=== PATIENT | female | born 1980 | race American Indian/Alaskan Native ===

== ENCOUNTER 2016-12-28 10:52 | Inpatient (IN) | payer OTHER ==
[2016-12-28 14:07] LABS: Mean Corpuscular HGB Conc 30 % (30-34); Mean Corpuscular Volume 79 fl (79-97); Platelet Count 167 K/mm3 (140-440); Red Blood Count 4.47 M/mm3 (3.65-5.03); Red Cell Distribution Width 16.7 % (13.2-15.2); White Blood Count 13.4 K/mm3 (4.5-11.0)
[2016-12-28 14:10] LABS: Hematocrit 35.3 % (30.3-42.9); Hemoglobin 10.7 gm/dl (10.1-14.3); Mean Corpuscular Hemoglobin 24 pg (28-32)
[2016-12-28 14:20] LABS: Anion Gap 14 mmol/L; BUN/Creatinine Ratio 18; Blood Urea Nitrogen 7 mg/dL (7-17); Calcium 8.4 mg/dL (8.4-10.2); Carbon Dioxide 29 mmol/L (22-30); Glucose 96 mg/dL (65-100); Potassium 3.5 mmol/L (3.6-5.0); Sodium 143 mmol/L (137-145)
--- NOTE | 2016-12-28 14:23 | Emergency Department Report ---
ED Neuro Deficit HPI - General Chief Complaint: Neuro Symptoms/Deficit Stated Complaint: RIGHT SIDED WEAKNESS/NUMBNESS Time Seen by Provider: 12/28/16 13:33 Source: EMS Mode of arrival: Stretcher Limitations: Physical Limitation - History of Present Illness Initial Comments: 36-year-old female with a past medical history of asthma, diabetes, a mild stroke at age of 22 presents to the hospital with complaints of right sided numbness and weakness since yesterday afternoon. Weakness and numbness includes right face, right arm, and right leg. Weakness has been constant and progressively worsened and now patient is unable to lift her right arm without using her left hand to do so. Patient denies headache, blurred vision, or slurred speech. She is allergic to aspirin and does not take any other anticoagulants. Patient presents here with elevated blood pressure and denies previous known history of hypertension. - Related Data Allergies/Adverse Reactions: Allergies Allergy/AdvReac Type Severity Reaction Status Date / Time aspirin Allergy Unknown Unknown Verified 12/28/16 11:41 ED Review of Systems ROS: Stated complaint: RIGHT SIDED WEAKNESS/NUMBNESS Other details as noted in HPI Comment: All other systems reviewed and negative Other: Constitutional: No fevers chills Eyes: No eye pain visual changes ENT: No ear pain or throat pain Neck: Denies pain Respiratory: Denies cough wheezing shortness of breath Cardiovascular: Denies chest pain, palpitations, syncope GI: Denies abdominal pain, nausea, vomiting, diarrhea : Denies dysuria Musculoskeletal: Denies back pain, joint swelling Skin: Denies rash, lesions, erythema Neurologic: As per HPI Psychiatric: Denies suicidal ideation, hallucinations ED Past Medical Hx - Past Medical History Hx Diabetes: Yes Hx Asthma: Yes - Surgical History Past Surgical History?: No - Social History Smoking Status: Current Every Day Smoker Substance Use Type: Alcohol ED Neuro Physical Exam - General Limitations: Physical Limitation Suspected Stroke: Yes - NIHSS Assessment Interval: Baseline 1a. Level of Consciousness: alert 1b. LOC Questions: answers correctly 1c. LOC Commands: performs tasks correctly 2. Best Gaze: normal 3. Visual: no visual loss 4. Facial Palsy: normal symmetrical movement 5b. Motor Arm Right: no movement 5a. Motor Arm Left: no drift 6a. Motor Leg Left: no drift 6b. Motor Leg Right: drift 7. Limb Ataxia: absent 8. Sensory: mild/moderate sensory loss (right face, right arm, right leg) 9. Best Language: no aphasia 10. Dysarthria: normal 11. Extinction/Inattention: no abnormality Total Score: 6 Stroke Severity: Moderate Stroke - Other Other exam information: General: No limitations, patient is alert in no acute distress Head exam: Atraumatic, normocephalic Eyes exam: Normal appearance, pupils equal reactive to light, extraocular movements intact ENT: Moist mucous membrane, normal oropharynx Neck exam: Normal inspection, full range of motion, no meningismus nontender Respiratory exam: Clear to auscultation bilateral, no wheezes, rales, crackles Cardiovascular: Normal rate and rhythm, normal heart sounds Abdomen: Soft, nondistended, and nontender, with normal bowel sounds, no rebound, or guarding Extremity: Full range of motion normal inspection no deformity Back: Normal Inspection, full range of motion, no tenderness Neurologic: Alert, oriented x3, as per HPI Psychiatric: normal affect, normal mood Skin: Warm, dry, intact ED Course Vital Signs 12/28/16 12/28/16 12/28/16 11:23 12:05 12:43 Temperature 98.0 F Pulse Rate 71 71 Respiratory 16 16 25 H Rate Blood Pressure 157/110 Blood Pressure 157/110 165/88 [Right] O2 Sat by Pulse 99 Oximetry 12/28/16 12:46 Temperature Pulse Rate 71 Respiratory Rate Blood Pressure Blood Pressure [Right] O2 Sat by Pulse Oximetry - Reevaluation(s) Reevaluation #1: 12/28/16 15:32 Patient is upset about staying in the hospital because she is living in a hotel and is worried about her children and her animals. I encouraged patient to stay in the hospital for further treatment. Patient states she feels like the sensation arm is returning - Lab Data Result diagrams: 12/28/16 13:48 12/28/16 13:48 Lab Results 12/28/16 12/28/16 12/28/16 Range/Units 13:48 13:48 13:48 WBC 13.4 H (4.5-11.0) K/mm3 RBC 4.47 (3.65-5.03) M/mm3 Hgb 10.7 (10.1-14.3) gm/dl Hct 35.3 (30.3-42.9) % MCV 79 (79-97) fl MCH 24 L (28-32) pg MCHC 30 (30-34) % RDW 16.7 H (13.2-15.2) % Plt Count 167 (140-440) K/mm3 Lymph # Psychiatric Rn Add Manual Diff Complete Total Counted 100 Seg Neuts % (Manual) 63.0 (40.0-70.0) % Band Neutrophils % 0 % Lymphocytes % (Manual) 35.0 (13.4-35.0) % Reactive Lymphs % (Man) 0 % Monocytes % (Manual) 2.0 (0.0-7.3) % Eosinophils % (Manual) 0 (0.0-4.3) % Basophils % (Manual) 0 (0.0-1.8) % Metamyelocytes % 0 % Myelocytes % 0 % Promyelocytes % 0 % Blast Cells % 0 % Nucleated RBC % Not Reportable Seg Neutrophils # Man 8.4 H (1.8-7.7) K/mm3 Band Neutrophils # 0.0 K/mm3 Lymphocytes # (Manual) 4.7 (1.2-5.4) K/mm3 Abs React Lymphs (Man) 0.0 K/mm3 Monocytes # (Manual) 0.3 (0.0-0.8) K/mm3 Eosinophils # (Manual) 0.0 (0.0-0.4) K/mm3 Basophils # (Manual) 0.0 (0.0-0.1) K/mm3 Metamyelocytes # 0.0 K/mm3 Myelocytes # 0.0 K/mm3 Promyelocytes # 0.0 K/mm3 Blast Cells # 0.0 K/mm3 WBC Morphology Not Reportable Hypersegmented Neuts Not Reportable Hyposegmented Neuts Not Reportable Hypogranular Neuts Not Reportable Smudge Cells Not Reportable Toxic Granulation Not Reportable Toxic Vacuolation Not Reportable Dohle Bodies Not Reportable Pelger-Huet Anomaly Not Reportable Leann Rods Not Reportable Platelet Estimate Cons Clumped Platelets Not Reportable Plt Clumps, EDTA Not Reportable Large Platelets Not Reportable Giant Platelets Not Reportable Platelet Satelliting Not Reportable Plt Morphology Comment Not Reportable RBC Morphology Not Reportable Dimorphic RBCs Not Reportable Polychromasia Not Reportable Hypochromasia 1+ Poikilocytosis Not Reportable Anisocytosis 1+ Microcytosis Not Reportable Macrocytosis Not Reportable Spherocytes Not Reportable Pappenheimer Bodies Not Reportable Sickle Cells Not Reportable Target Cells Not Reportable Tear Drop Cells Not Reportable Ovalocytes Not Reportable Helmet Cells Not Reportable [place] Bodies Not Reportable Stanton Rings Not Reportable Marylu Cells Not Reportable Bite Cells Not Reportable Crenated Cell Not Reportable Elliptocytes Not Reportable Acanthocytes (Spur) Not Reportable Rouleaux Not Reportable Hemoglobin C Crystals Not Reportable Schistocytes Not Reportable Malaria parasites Not Reportable Josh Bodies Not Reportable Hem Pathologist Commnt No Sodium 143 (137-145) mmol/L Potassium 3.5 L (3.6-5.0) mmol/L Chloride 104.0 (98-107) mmol/L Carbon Dioxide 29 (22-30) mmol/L Anion Gap 14 mmol/L BUN 7 (7-17) mg/dL Creatinine 0.4 L (0.7-1.2) mg/dL Estimated GFR > 60 ml/min BUN/Creatinine Ratio 18 % Glucose 96 (65-100) mg/dL POC Glucose (70-105) Calcium 8.4 (8.4-10.2) mg/dL Magnesium 1.80 (1.7-2.3) mg/dL HCG, Qual Negative (Negative) 12/28/16 Range/Units 14:06 WBC (4.5-11.0) K/mm3 RBC (3.65-5.03) M/mm3 Hgb (10.1-14.3) gm/dl Hct (30.3-42.9) % MCV (79-97) fl MCH (28-32) pg MCHC (30-34) % RDW (13.2-15.2) % Plt Count (140-440) K/mm3 Lymph # Add Manual Diff Total Counted Seg Neuts % (Manual) (40.0-70.0) % Band Neutrophils % % Lymphocytes % (Manual) (13.4-35.0) % Reactive Lymphs % (Man) % Monocytes % (Manual) (0.0-7.3) % Eosinophils % (Manual) (0.0-4.3) % Basophils % (Manual) (0.0-1.8) % Metamyelocytes % % Myelocytes % % Promyelocytes % % Blast Cells % % Nucleated RBC % Seg Neutrophils # Man (1.8-7.7) K/mm3 Band Neutrophils # K/mm3 Lymphocytes # (Manual) (1.2-5.4) K/mm3 Abs React Lymphs (Man) K/mm3 Monocytes # (Manual) (0.0-0.8) K/mm3 Eosinophils # (Manual) (0.0-0.4) K/mm3 Basophils # (Manual) (0.0-0.1) K/mm3 Metamyelocytes # K/mm3 Myelocytes # K/mm3 Promyelocytes # K/mm3 Blast Cells # K/mm3 WBC Morphology Hypersegmented Neuts Hyposegmented Neuts Hypogranular Neuts Smudge Cells Toxic Granulation Toxic Vacuolation Dohle Bodies Pelger-Huet Anomaly Leann Rods Platelet Estimate Clumped Platelets Plt Clumps, EDTA Large Platelets Giant Platelets Platelet Satelliting Plt Morphology Comment RBC Morphology Dimorphic RBCs Polychromasia Hypochromasia Poikilocytosis Anisocytosis Microcytosis Macrocytosis Spherocytes Pappenheimer Bodies Sickle Cells Target Cells Tear Drop Cells Ovalocytes Helmet Cells [place] Bodies Stanton Rings Ovalo Cells Bite Cells Crenated Cell Elliptocytes Acanthocytes (Spur) Rouleaux Hemoglobin C Crystals Schistocytes Malaria parasites Josh Bodies Hem Pathologist Commnt Sodium (137-145) mmol/L Potassium (3.6-5.0) mmol/L Chloride (98-107) mmol/L Carbon Dioxide (22-30) mmol/L Anion Gap mmol/L BUN (7-17) mg/dL Creatinine (0.7-1.2) mg/dL Estimated GFR ml/min BUN/Creatinine Ratio % Glucose (65-100) mg/dL POC Glucose 131 H (70-105) Calcium (8.4-10.2) mg/dL Magnesium (1.7-2.3) mg/dL HCG, Qual (Negative) - EKG Data -: EKG Interpreted by Ut EKG shows normal: sinus rhythm, axis (qrs 54), QRS complexes (97, lvh), ST-T waves (no stemi/t inv) Rate: normal (72) - Radiology Data Radiology results: report reviewed ct head: decreased density within the left body of the caudate nucleus/bits left ledesma radiata. 11 x 9 mm. Acute to subacute infarction is not excluded. Chronic bilateral ethmoid and maxillary sinusitis - Medical Decision Making Plan to admit patient to the hospital for further stroke workup. Patient is outside of the window of TPA and cannot receive aspirin due to allergy. Hospitalist to determine if Plavix as indicated. At this time patient is agreeable to admission - Differential Diagnosis multiple sclerosis, acute ischemic CVA, hemorrhagic CVA, - Thrombolytic Inclusion/Exclusion Thrombolytic Exclusion Criteria: Symptom Onset > 3 Hours Critical Care Time: No Critical care attestation.: If time is entered above; I have spent that time in minutes in the direct care of this critically ill patient, excluding procedure time. ED Disposition Clinical Impression: Acute ischemic stroke, Right sided weakness, Hypertension, Diabetes Disposition: OP ADMIT IP TO THIS HOSP Is pt being admited?: Yes Does the pt Need Aspirin: No (allergic) Time of Disposition: 15:25 (Dr Olvera/hosp)
[2016-12-28 14:53] LABS: Basophils % (Manual) 0 % (0.0-1.8); Blastocytes % (Manual) 0 %; Eosinophils % (Manual) 0 % (0.0-4.3)
[2016-12-28 14:54] LABS: Anisocytosis 1+; Hypochromasia 1+
[2016-12-28 14:55] LABS: Diff Status Complete; Platelet Estimate Cons
--- NOTE | 2016-12-28 15:12 | Cat Scan Report ---
FINAL REPORT PROCEDURE: CT HEAD/BRAIN WO CON TECHNIQUE: Computerized tomography of the head was performed without contrast material. HISTORY: right sided weakness and numbness COMPARISON: None FINDINGS: 11 x 9 millimeter subtle decreased density is present of the body of the left caudate nucleus/mid left ledesma radiata. There is no intra or extra-axial hemorrhage. There is no mass effect or shift of midline structures. There is no hydrocephalus. Chronic bilateral maxillary and ethmoidal sinusitis is present. The skull base and calvarium are intact. IMPRESSION: Decreased density within the left body of the caudate nucleus/mid left ledesma radiata. This is 11 x 9 millimeters. Acute/subacute infarction is not excluded. If desired, MRI with diffusion may be of benefit. Chronic bilateral ethmoidal and maxillary sinusitis.
--- NOTE | 2016-12-28 15:36 | History and Physical Report ---
History of Present Illness Date of examination: 12/28/16 Date of admission: 12/28/16 Chief complaint: Right upper extremity weakness History of present illness: Patient is 36-year-old with history of diabetes, asthma and TIA. She presents with right upper extremity numbness tingling and weakness for 2 days. She states symptoms started yesterday when she had sudden numbness, tingling and weakness in the right upper extremity. Initially she can still move however weakness became worse and today she cannot move right upper extremity at all. She therefore came to Emergency epartment for evaluation. In ED, CT head showed a possible acute ischemic stroke. She will be admitted for further evaluation and management of acute ischemic stroke Past History Past Medical History: diabetes, other (TIA,asthma) Past Surgical History: denies: No surgical history Social history: lives with family, smoking, alcohol abuse, full code Family history: CAD, diabetes Medications and Allergies Allergies Allergy/AdvReac Type Severity Reaction Status Date / Time aspirin Allergy Unknown Unknown Verified 12/28/16 11:41 Home Medications Medication Instructions Recorded Confirmed Last Taken Type Metformin HCl 1,000 mg PO BID 12/28/16 12/28/16 Unknown History glipiZIDE [glipiZIDE ER] 5 mg PO DAILY 12/28/16 12/28/16 Unknown History Review of Systems All systems: negative (no chest pain, no shortness of breath, no fever, no abdominal pain, no urinary symptoms. All other systems reviewed and are negative) Exam - Physical Exam Narrative exam: GEN APPEARANCE : Not in acute distress, HEENT: Normocephalic Atraumatic NECK : supple, no JVD LUNGS: clear to auscultation bilaterally, no rales, no wheeze HEART: S1 and S2 regular, no murmurs, rubs or gallop ABD: Soft, no tenderness, no distension, normal bowel sounds EXT: No edema, no clubbing, no cyanosis NEURO:Awake,alert,oriented x 3, no facial asymmetry, muscle power RUE 0/5, LUE 5 /5, RLE 4/5, LLE 5/5 - Constitutional Vitals: Temp Pulse Resp BP Pulse Ox 98.0 F 71 25 H 165/88 99 12/28/16 11:23 12/28/16 12:46 12/28/16 12:43 12/28/16 12:43 12/28/16 11:23 Results - Labs CBC & Chem 7: 12/28/16 13:48 12/28/16 13:48 Labs: Abnormal lab results 12/28/16 12/28/16 12/28/16 Range/Units 13:48 13:48 14:06 WBC 13.4 H (4.5-11.0) K/mm3 MCH 24 L (28-32) pg RDW 16.7 H (13.2-15.2) % Seg Neutrophils # Man 8.4 H (1.8-7.7) K/mm3 Potassium 3.5 L (3.6-5.0) mmol/L Creatinine 0.4 L (0.7-1.2) mg/dL POC Glucose 131 H (70-105) Assessment and Plan Acute ischemic stroke. Admit to telemetry. Patient presented with right upper extremity weakness and found to have right upper and lower extremity weakness. CT shows likely acute ischemic stroke. Admit using stroke protocol. Obtain MRI and MRA of the brain, echocardiogram, carotid Dopplers. She's allergic to aspirin. Start Plavix 75 mg by mouth now and daily. Diabetes mellitus type II. Fingerstick glucose Qac and hs. Continue glipizide and hold metformin. Leukocytosis. Probably reactive. will monitor. Repeat in am. Elevated Blood pressure elevated 156/81. She denies any previous history of hypertension. We'll only treat within first 24 hours if systolic BP greater than 220. DVT prophylaxis with Lovenox Full code status
[2016-12-28] MEDS ORDERED: PLAVIX PO STA (16:07)
[2016-12-28] MEDS ORDERED: TYLENOL PO PRN (16:09)
[2016-12-28] MEDS ORDERED: DULCOLAX PR PRN (16:09)
[2016-12-28] MEDS ORDERED: SODIUM CHLORIDE FLUSH SYRINGE 10 ML IV PRN (16:09)
[2016-12-28] MEDS ORDERED: ZOFRAN IV PRN (16:09)
[2016-12-28] MEDS ORDERED: MORPHINE IV PRN (16:09)
[2016-12-28] MEDS ORDERED: REGLAN PO PRN (16:09)
[2016-12-28] MEDS ORDERED: MILK OF MAGNESIA PO PRN (16:09)
[2016-12-28 16:31] LABS: INR 0.89 (0.87-1.13)
[2016-12-28 16:32] LABS: Partial Thromboplastin Time 28.5 Sec. (24.2-36.6)
[2016-12-28] MEDS ORDERED: D50W (25GM) Syringe IV PRN (17:22)
[2016-12-28] MEDS ORDERED: D50W (25GM) Vial IV PRN (17:30)
--- NOTE | 2016-12-28 20:25 | Magnetic Resonance Report ---
FINAL REPORT PROCEDURE: MR MRA/MRV HEAD WO CON TECHNIQUE: Unenhanced 3D [id number] images of the vessels of the [place] are obtained. HISTORY: stroke right-sided weakness COMPARISON: No prior studies are available for comparison. FINDINGS: Right vertebral artery is dominant. Left vertebral artery appears to terminate in PICA. Bilateral posterior communicating arteries are seen and both P1 segments are present. Small anterior communicating artery is seen. There is focal loss of signal of the ICAs at the skull base. This is probably due to motion artifact given the symmetric appearance. No diminished flow is seen in the ICAs distal to this level. No intracranial aneurysm is seen. There is a small size of the proximal right A2 segment. IMPRESSION: Likely artifactual loss of signal is seen in both ICAs in the proximal carotid canals. Proximal right A2 segment is small which could be from artifact or true stenosis. Correlation with CTA may be useful.
--- NOTE | 2016-12-28 20:29 | Magnetic Resonance Report ---
FINAL REPORT PROCEDURE: MR BRAIN WO CON TECHNIQUE: Magnetic resonance imaging of the brain was performed without contrast material. HISTORY: stroke COMPARISON: Head CT dated December 28, 2016 FINDINGS: Restricted diffusion is seen focally in the left ledesma radiata. This corresponds to area of diminished density on CT study. It has mild increased T2 signal and is consistent with a recent infarct. Cerebral ventricles are normal in size. Cerebellar tonsils are normally positioned. No intracranial hemorrhage or mass effect is seen. Changes of chronic sinusitis are seen. IMPRESSION: Recent lacunar infarct is seen in the left ledesma radiata. No evidence of hemorrhagic transformation is seen.
[2016-12-28] MEDS: NOVOLOG SUB-Q SCH (22:12)
[2016-12-29 05:52] LABS: Hemoglobin 10.5 gm/dl (10.1-14.3); Mean Corpuscular HGB Conc 32 % (30-34); Mean Corpuscular Volume 78 fl (79-97); Platelet Count 174 K/mm3 (140-440); Red Blood Count 4.23 M/mm3 (3.65-5.03); Red Cell Distribution Width 16.3 % (13.2-15.2); White Blood Count 9.4 K/mm3 (4.5-11.0)
[2016-12-29 05:54] LABS: Mean Corpuscular Hemoglobin 25 pg (28-32)
[2016-12-29 06:10] LABS: Anion Gap 15 mmol/L; BUN/Creatinine Ratio 12; Blood Urea Nitrogen 6 mg/dL (7-17); Calcium 8.2 mg/dL (8.4-10.2); Carbon Dioxide 28 mmol/L (22-30); Chloride 105.2 mmol/L (98-107); Glucose 111 mg/dL (65-100); Potassium 3.4 mmol/L (3.6-5.0); Sodium 145 mmol/L (137-145)
[2016-12-29] MEDS: NOVOLOG SUB-Q SCH ×4 (07:45→22:38)
[2016-12-29] MEDS: LOVENOX SUB-Q SCH (10:52)
[2016-12-29] MEDS: GLUCOTROL XL PO SCH (10:52)
[2016-12-29] MEDS: PLAVIX PO SCH (10:52)
--- NOTE | 2016-12-29 15:33 | Consultation ---
History of Present Illness - Reason for Consult Consult date: 12/29/16 Left Hemisphere Stroke with Carotid Stenosis - History of Present Illness This patient is a 36-year-old female that was admitted via the emergency room with an acute onset of right sided weakness 2 days prior to this admission. Additionally, She was able to understand language, but was unable to speak. She did not initially seek medical treatment hoping that this would be self-limited. Her symptoms have nearly resolved at this point except for mild right upper extremity weakness. A CT scan of the head suggested an acute/ subacute infarction. An MRI suggests a recent lacunar infarct in the left ledesma radiata. A preliminary carotid duplex suggest a left internal carotid artery stenosis of 50-79% with less than 50% stenosis on the right based upon velocity. A vascular surgery consult has been requested to further evaluate. The patient does not take antiplatelet therapy on a daily basis. 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[employer]) Family history: CAD, diabetes Medications and Allergies Allergies Allergy/AdvReac Type Severity Reaction Status Date / Time aspirin Allergy Unknown Unknown Verified 12/28/16 11:41 Home Medications Medication Instructions Recorded Confirmed Last Taken Type Metformin HCl 1,000 mg PO BID 12/28/16 12/28/16 Unknown History glipiZIDE [glipiZIDE ER] 5 mg PO DAILY 12/28/16 12/28/16 Unknown History Active Meds: Active Medications Acetaminophen (Tylenol) 650 mg PO Q4H PRN PRN Reason: Pain, Mild (1-3) Atorvastatin Calcium (Lipitor) 40 mg PO QHS [facility] Bisacodyl (Dulcolax) 10 mg [place] QDAY PRN PRN Reason: Constipation Clopidogrel Bisulfate (Plavix) 75 mg PO QDAY [facility] Last Admin: 12/29/16 10:52 Dose: 75 mg Dextrose (D50w (25gm) Vial) 25 gm IV PRN PRN PRN Reason: Hypoglycemia Enoxaparin Sodium (Lovenox) 40 mg SUB-Q QDAY [facility] Last Admin: 12/29/16 10:52 Dose: 40 mg Glipizide (Glucotrol Xl) 5 mg PO DAILY [facility] Last Admin: 12/29/16 10:52 Dose: 5 mg Insulin Aspart (Novolog) 0 units SUB-Q AC LUIS PRN Reason: Protocol Last Admin: 12/29/16 07:45 Dose: Not Given Insulin Aspart (Novolog) 0 units SUB-Q QHS [facility]IS PRN Reason: Protocol Last Admin: 12/28/16 22:12 Dose: Not Given Magnesium Hydroxide (Milk Of Magnesia) 30 ml PO Q4H PRN PRN Reason: Constipation Metoclopramide HCl (Reglan) 10 mg PO Q6H PRN PRN Reason: Nausea And Vomiting Morphine Sulfate (Morphine) 2 mg IV Q4H PRN PRN Reason: Pain, Moderate (4-6) Ondansetron HCl (Zofran) 4 mg IV Q6H PRN PRN Reason: nausea or vomiting Sodium Chloride (Sodium Chloride Flush Syringe 10 Ml) 10 ml IV PRN PRN PRN Reason: LINE FLUSH Review of Systems All systems: negative Exam - Constitutional Vitals: Temp Pulse Resp BP Pulse Ox 97.8 F 80 20 161/92 100 12/29/16 11:01 12/29/16 11:01 12/29/16 11:01 12/29/16 11:01 12/29/16 11:01 General appearance: Present: no acute distress - EENT Eyes: Present: EOM intact ENT: hearing intact - Respiratory Respiratory effort: normal - Cardiovascular Rhythm: regular - Extremities Extremities: no ischemia - Psychiatric Psychiatric: appropriate mood/affect, intact judgment & insight, cooperative - Neurologic Neurologic: focal deficits (mild right upper extremity weakness when compared to the left) Results - Labs CBC & Chem 7: 12/29/16 05:35 12/29/16 05:35 Labs: Abnormal lab results 12/28/16 12/28/16 12/29/16 Range/Units 13:48 20:29 05:35 MCV (79-97) fl MCH (28-32) pg RDW (13.2-15.2) % Potassium (3.6-5.0) mmol/L BUN (7-17) mg/dL Creatinine (0.7-1.2) mg/dL Glucose (65-100) mg/dL POC Glucose 137 H (70-105) Hemoglobin A1c 8.2 H (4-6) % Calcium (8.4-10.2) mg/dL HDL Cholesterol 29 L (40-59) mg/dL 12/29/16 12/29/16 12/29/16 Range/Units 05:35 05:35 11:26 MCV 78 L (79-97) fl MCH 25 L (28-32) pg RDW 16.3 H (13.2-15.2) % Potassium 3.4 L (3.6-5.0) mmol/L BUN 6 L (7-17) mg/dL Creatinine 0.5 L (0.7-1.2) mg/dL Glucose 111 H (65-100) mg/dL POC Glucose 183 H (70-105) Hemoglobin A1c (4-6) % Calcium 8.2 L (8.4-10.2) mg/dL HDL Cholesterol (40-59) mg/dL Assessment and Plan This patient presented with a 2 day history of acute right sided hemiparesis. Her symptoms have nearly resolved except for mild right upper extremity weakness. An MRI suggested a recent lacunar infarction. A carotid duplex suggested a left internal carotid artery stenosis of 50-79% based upon velocity alone without evidence of significant intra-arterial plaque. Her peak systolic velocities are in the 130s. She has less than 50% stenosis on the left. A vascular surgery consult was requested to further evaluate. The patient does not take antiplatelet medication as an outpatient. We'll check a CT angiogram of the carotids. Lacunar infarcts do not typically represent embolic strokes. Recommend neurology consult. We'll defer best medical management to neurology and hospitalist. - Patient Problems (1) Acute lacunar infarction Current Visit: Yes Status: Acute (2) Diabetes Current Visit: Yes Status: Acute (3) Hypertension Current Visit: Yes Status: Acute
--- NOTE | 2016-12-29 16:09 | Progress Note ---
Assessment and Plan Assessment and plan: CVA with mild right-sided weakness - Patient is on Plavix and statin -Physical therapy -Neurology consult Permissive hypertension Carotid Doppler ultrasound - Showed 50-79% stenosis - Vascular consulted and recommended CTA neck DVT prophylaxis -Lovenox Disposition -Continue inpatient History Interval history: Patient was seen and evaluated this morning, patient has mild right upper extremity weakness, markedly improved. Hospitalist Physical - Physical exam Narrative exam: Not in cardiopulmonary distress. The patient appeared well nourished and normally developed. Vital signs as documented. Head exam is unremarkable. No scleral icterus . Neck is without jugular venous distension, thyromegaly, or carotid bruits. Lungs are clear to auscultation. Cardiac exam reveals regular rate and Rhythm. First and second heart sounds normal. No murmurs, rubs or gallops. Abdominal exam reveals normal bowel sounds, no masses, no organomegaly and no aortic enlargement. Extremities are nonedematous and both femoral and pedal pulses are normal. PLANNING ADVISOR: Alert and oriented 3. Right upper extremity mild weakness. - Constitutional Vitals: Temp Pulse Resp BP Pulse Ox 97.8 F 80 20 161/92 100 12/29/16 11:01 12/29/16 11:01 12/29/16 11:01 12/29/16 11:01 12/29/16 11:01 General appearance: Present: no acute distress Results - Labs CBC & Chem 7: 12/29/16 05:35 12/29/16 05:35 Labs: Laboratory Last Values WBC 9.4 K/mm3 (4.5-11.0) 12/29/16 05:35 RBC 4.23 M/mm3 (3.65-5.03) 12/29/16 05:35 Hgb 10.5 gm/dl (10.1-14.3) 12/29/16 05:35 Hct 33.0 % (30.3-42.9) 12/29/16 05:35 MCV 78 fl (79-97) L 12/29/16 05:35 MCH 25 pg (28-32) L 12/29/16 05:35 MCHC 32 % (30-34) 12/29/16 05:35 RDW 16.3 % (13.2-15.2) H 12/29/16 05:35 Plt Count 174 K/mm3 (140-440) 12/29/16 05:35 Lymph # Tufting Machine Operator Single Needle 12/28/16 13:48 Add Manual Diff Complete 12/28/16 13:48 Total Counted 100 12/28/16 13:48 Seg Neuts % (Manual) 63.0 % (40.0-70.0) 12/28/16 13:48 Band Neutrophils % 0 % 12/28/16 13:48 Lymphocytes % (Manual) 35.0 % (13.4-35.0) 12/28/16 13:48 Reactive Lymphs % (Man) 0 % 12/28/16 13:48 Monocytes % (Manual) 2.0 % (0.0-7.3) 12/28/16 13:48 Eosinophils % (Manual) 0 % (0.0-4.3) 12/28/16 13:48 Basophils % (Manual) 0 % (0.0-1.8) 12/28/16 13:48 Metamyelocytes % 0 % 12/28/16 13:48 Myelocytes % 0 % 12/28/16 13:48 Promyelocytes % 0 % 12/28/16 13:48 Blast Cells % 0 % 12/28/16 13:48 Nucleated RBC % Not Reportable 12/28/16 13:48 Seg Neutrophils # Man 8.4 K/mm3 (1.8-7.7) H 12/28/16 13:48 Band Neutrophils # 0.0 K/mm3 12/28/16 13:48 Lymphocytes # (Manual) 4.7 K/mm3 (1.2-5.4) 12/28/16 13:48 Abs React Lymphs (Man) 0.0 K/mm3 12/28/16 13:48 Monocytes # (Manual) 0.3 K/mm3 (0.0-0.8) 12/28/16 13:48 Eosinophils # (Manual) 0.0 K/mm3 (0.0-0.4) 12/28/16 13:48 Basophils # (Manual) 0.0 K/mm3 (0.0-0.1) 12/28/16 13:48 Metamyelocytes # 0.0 K/mm3 12/28/16 13:48 Myelocytes # 0.0 K/mm3 12/28/16 13:48 Promyelocytes # 0.0 K/mm3 12/28/16 13:48 Blast Cells # 0.0 K/mm3 12/28/16 13:48 WBC Morphology Not Reportable 12/28/16 13:48 Hypersegmented Neuts Not Reportable 12/28/16 13:48 Hyposegmented Neuts Not Reportable 12/28/16 13:48 Hypogranular Neuts Not Reportable 12/28/16 13:48 Smudge Cells Not Reportable 12/28/16 13:48 Toxic Granulation Not Reportable 12/28/16 13:48 Toxic Vacuolation Not Reportable 12/28/16 13:48 Dohle Bodies Not Reportable 12/28/16 13:48 Pelger-Huet Anomaly Not Reportable 12/28/16 13:48 Leann Rods Not Reportable 12/28/16 13:48 Platelet Estimate Cons 12/28/16 13:48 Clumped Platelets Not Reportable 12/28/16 13:48 Plt Clumps, EDTA Not Reportable 12/28/16 13:48 Large Platelets Not Reportable 12/28/16 13:48 Giant Platelets Not Reportable 12/28/16 13:48 Platelet Satelliting Not Reportable 12/28/16 13:48 Plt Morphology Comment Not Reportable 12/28/16 13:48 RBC Morphology Not Reportable 12/28/16 13:48 Dimorphic RBCs Not Reportable 12/28/16 13:48 Polychromasia Not Reportable 12/28/16 13:48 Hypochromasia 1+ 12/28/16 13:48 Poikilocytosis Not Reportable 12/28/16 13:48 Anisocytosis 1+ 12/28/16 13:48 Microcytosis Not Reportable 12/28/16 13:48 Macrocytosis Not Reportable 12/28/16 13:48 Spherocytes Not Reportable 12/28/16 13:48 Pappenheimer Bodies Not Reportable 12/28/16 13:48 Sickle Cells Not Reportable 12/28/16 13:48 Target Cells Not Reportable 12/28/16 13:48 Tear Drop Cells Not Reportable 12/28/16 13:48 Ovalocytes Not Reportable 12/28/16 13:48 Helmet Cells Not Reportable 12/28/16 13:48 [place] Bodies Not Reportable 12/28/16 13:48 [place] Rings Not Reportable 12/28/16 13:48 [place] Cells Not Reportable 12/28/16 13:48 Bite Cells Not Reportable 12/28/16 13:48 Crenated Cell Not Reportable 12/28/16 13:48 Elliptocytes Not Reportable 12/28/16 13:48 Acanthocytes (Spur) Not Reportable 12/28/16 13:48 Rouleaux Not Reportable 12/28/16 13:48 Hemoglobin C Crystals Not Reportable 12/28/16 13:48 Schistocytes Not Reportable 12/28/16 13:48 Malaria parasites Not Reportable 12/28/16 13:48 Josh Bodies Not Reportable 12/28/16 13:48 Hem Pathologist Commnt No 12/28/16 13:48 PT 12.5 Sec. (12.2-14.9) 12/28/16 15:50 INR 0.89 (0.87-1.13) 12/28/16 15:50 APTT 28.5 Sec. (24.2-36.6) 12/28/16 15:50 Sodium 145 mmol/L (137-145) 12/29/16 05:35 Potassium 3.4 mmol/L (3.6-5.0) L 12/29/16 05:35 Chloride 105.2 mmol/L (98-107) 12/29/16 05:35 Carbon Dioxide 28 mmol/L (22-30) 12/29/16 05:35 Anion Gap 15 mmol/L 12/29/16 05:35 BUN 6 mg/dL (7-17) L 12/29/16 05:35 Creatinine 0.5 mg/dL (0.7-1.2) L 12/29/16 05:35 Estimated GFR > 60 ml/min 12/29/16 05:35 BUN/Creatinine Ratio 12 % 12/29/16 05:35 Glucose 111 mg/dL (65-100) H 12/29/16 05:35 POC Glucose 183 (70-105) H 12/29/16 11:26 Hemoglobin A1c 8.2 % (4-6) H 12/28/16 13:48 Calcium 8.2 mg/dL (8.4-10.2) L 12/29/16 05:35 Magnesium 1.80 mg/dL (1.7-2.3) 12/28/16 13:48 Triglycerides 149 mg/dL (2-149) 12/29/16 05:35 Cholesterol 146 mg/dL (50-199) 12/29/16 05:35 LDL Cholesterol Direct 88 mg/dL (50-130) 12/29/16 05:35 HDL Cholesterol 29 mg/dL (40-59) L 12/29/16 05:35 Cholesterol/HDL Ratio 5.03 % 12/29/16 05:35 HCG, Qual Negative (Negative) 12/28/16 13:48
[2016-12-29] MEDS ORDERED: K-DUR PO ONE ×3 (17:00→19:23)
--- NOTE | 2016-12-29 19:19 | Cat Scan Report ---
FINAL REPORT PROCEDURE: CT ANGIO NECK TECHNIQUE: Computerized tomographic angiography of the neck was performed after the IV injection of iodinated nonionic contrast including image processing. The image data was postprocessed using 2-dimensional multiplanar reformatted (MPR) and 3-dimensional (MIP and/or volume rendered) techniques. HISTORY: Stroke COMPARISON: No prior studies are available for comparison. Note: Assessment of carotid artery stenosis is based on measurement of the distal internal carotid artery diameter as the denominator for stenosis calculations and the [place] Symptomatic Carotid Endarterectomy Trial (NASCET) stenosis criteria . CPT 3100F FINDINGS: Thyroid gland is mildly prominent with multiple cysts or nodules. Correlation with ultrasound is recommended. Right vertebral artery is dominant. Left vertebral artery may terminate in PICA. No vertebral artery stenosis is seen. No stenosis is seen of the common carotid or internal carotid arteries in the neck. IMPRESSION: No vertebral or carotid artery stenosis is seen in the neck. Cyst and/or nodules are seen in the thyroid gland. Correlation with ultrasound is recommended.
[2016-12-30 05:50] VITALS: BP 153/75
--- NOTE | 2016-12-30 09:07 | Discharge Summary ---
Providers - Providers Date of Admission: 12/28/16 16:09 Date of discharge: 12/30/16 Attending physician: FARHAT RUCKER MD 12/28/16 16:09 Consult to Case Management [CONS] Routine Services Needed at Discharge: Physical Chemistry Professor Notified:: upper caserman[employer] investment banking Therapy Evaluate and Treat [CONS] Routine Comment: Reason For Exam: Neuro deficits Physical Therapy Evaluation and Treat [CONS] Routine Comment: Reason For Exam: Neuro deficits 12/28/16 19:59 Speech Therapy Evaluation and Treat [CONS] Routine Reason For Exam: stroke 12/29/16 09:04 Consult to Physician [CONS] Routine Consulting Provider: RAKESH RILEY Reason For Exam: left carotid 50-79%stenosis, left sided CVA Place consult to:: Dr. Riley Notified:: [place] ZURITA Phone number called:: Was contact made?: Yes If yes, spoke with:: Becky-Office Time called:: 10:02 12/29/16 15:59 Consult to Physician [CONS] Routine Consulting Provider: ROMULO RICH Reason For Exam: CVA Place consult to:: Dr. Rich Notified:: [place] ZURITA Phone number called:: Was contact made?: Yes If yes, spoke with:: [facility]restes-answering service Time called:: 17:07 Primary care physician: STRIKE ON MACHINE OPERATOR Hospitalization Reason for admission: CVA with right sided weakness Condition: Stable Pertinent studies: Brain MRI Recent lacunar infarct is seen in the left ledesma radiata. No evidence of hemorrhagic transformation is seen. Carotid Doppler 50-79% stenosis of the left internal carotid artery CT angiogram neck No vertebral or carotid artery stenosis is seen in the neck. Echo ejection fraction 55-60% Hospital course: Patient is 36-year-old with history of diabetes, asthma and TIA. She presents with right upper extremity numbness tingling and weakness for 2 days. She states symptoms started yesterday when she had sudden numbness, tingling and weakness in the right upper extremity. Initially she can still move however weakness became worse and today she cannot move right upper extremity at all. She therefore came to Emergency epartment for evaluation. In ED, CT head showed a possible acute ischemic stroke. She will be admitted for further evaluation and management of acute ischemic stroke. Patient was admitted for acute ischemic stroke and imaging is as stated above. Patient was put on Plavix, statin and discharged home with home health. Patient's questions and concerns were addressed at the bedside. Patient was hemodynamically stable at the time of discharge. Disposition: [id number] HOME UNDER HOME [facility] Time spent for discharge: 31 minutes - Discharge Diagnoses (1) Acute ischemic stroke Status: Acute (2) Acute lacunar infarction Status: Acute (3) Diabetes Status: Acute (4) Hypertension Status: Acute (5) Right sided weakness Status: Acute Core Measure Documentation - Palliative Care Palliative Care/ Comfort Measures: Not Applicable - Core Measures Any of the following diagnoses?: stroke - Stroke Discharge Requirements Statin for LDL = or >70 mg/dl on DC: Yes Anticoag for atrial fib/atrial flutter: Not Applicable Antithrombotic for ischemic stroke: Yes Exam - Physical Exam Narrative exam: Not in cardiopulmonary distress. The patient appeared well nourished and normally developed. Vital signs as documented. Head exam is unremarkable. No scleral icterus . Neck is without jugular venous distension, thyromegaly, or carotid bruits. Lungs are clear to auscultation. Cardiac exam reveals regular rate and Rhythm. First and second heart sounds normal. No murmurs, rubs or gallops. Abdominal exam reveals normal bowel sounds, no masses, no organomegaly and no aortic enlargement. Extremities are nonedematous and both femoral and pedal pulses are normal. PRODUCTION ASSOCIATE: Alert and oriented 3. Right upper extremity mild weakness. - Constitutional Vitals: Temp Pulse Resp BP Pulse Ox 97.9 F 61 18 153/75 98 12/30/16 05:10 12/30/16 05:10 12/30/16 05:10 12/30/16 05:10 12/30/16 05:10 Plan Activity: no restrictions Weight Bearing Status: Full Weight Bearing Diet: low cholesterol, low salt, diabetic Additional Instructions: Please follow @ [facility] [place] in 2 weeks Follow up with: [facility] [Provider Group] - 7 Days PRIMARY MD BARI [Primary Care Provider] - 3-5 Days ROMULO RICH MD [Staff Physician] - 14 Days Prescriptions: AtorvaSTATin [Lipitor] 40 mg PO QHS #30 tablet amLODIPine [Norvasc] 10 mg PO DAILY #30 tab Clopidogrel [Plavix] 75 mg PO QDAY #30 tablet glipiZIDE [glipiZIDE ER] 5 mg PO DAILY #30 tab.er.24 Metformin HCl 1,000 mg PO BID #30 tablet
--- NOTE | 2016-12-30 09:31 | Consultation ---
History of Present Illness Consult date: 12/30/16 History of present illness: went over the studies ansd still need dictated report on the carotid u/s the stroke is lacunar therefore ASA therapy, high dose statin, and HTN control there is no surgical lesion in the neck on the CTA of the neck the ECHO does not show evidence of a source for embolus 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pharmacy) Family history: CAD, diabetes Medications and Allergies Allergies Allergy/AdvReac Type Severity Reaction Status Date / Time aspirin Allergy Unknown Unknown Verified 12/28/16 11:41 Home Medications Medication Instructions Recorded Confirmed Last Taken Type AtorvaSTATin [Lipitor] 40 mg PO QHS #30 tablet 12/30/16 Unknown Rx Clopidogrel [Plavix] 75 mg PO QDAY #30 tablet 12/30/16 Unknown Rx Metformin HCl 1,000 mg PO BID #30 tablet 12/30/16 Unknown Rx amLODIPine [Norvasc] 10 mg PO DAILY #30 tab 12/30/16 Unknown Rx glipiZIDE [glipiZIDE ER] 5 mg PO DAILY #30 tab.er.24 12/30/16 Unknown Rx Active Meds: Active Medications Acetaminophen (Tylenol) 650 mg PO Q4H PRN PRN Reason: Pain, Mild (1-3) Atorvastatin Calcium (Lipitor) 40 mg PO QHS [facility] Last Admin: 12/29/16 22:35 Dose: 40 mg Bisacodyl (Dulcolax) 10 mg MO QDAY PRN PRN Reason: Constipation Clopidogrel Bisulfate (Plavix) 75 mg PO QDAY [facility] Last Admin: 12/29/16 10:52 Dose: 75 mg Dextrose (D50w (25gm) Vial) 25 gm IV PRN PRN PRN Reason: Hypoglycemia Enoxaparin Sodium (Lovenox) 40 mg SUB-Q QDAY [facility] Last Admin: 12/29/16 10:52 Dose: 40 mg Glipizide (Glucotrol Xl) 5 mg PO DAILY [facility] Last Admin: 12/29/16 10:52 Dose: 5 mg Insulin Aspart (Novolog) 0 units SUB-Q [facility] PRN Reason: Protocol Last Admin: 12/29/16 17:30 Dose: Not Given Insulin Aspart (Novolog) 0 units SUB-Q QHS [facility] PRN Reason: Protocol Last Admin: 12/29/16 22:38 Dose: Not Given Magnesium Hydroxide (Milk Of Magnesia) 30 ml PO Q4H PRN PRN Reason: Constipation Metoclopramide HCl (Reglan) 10 mg PO Q6H PRN PRN Reason: Nausea And Vomiting Morphine Sulfate (Morphine) 2 mg IV Q4H PRN PRN Reason: Pain, Moderate (4-6) Ondansetron HCl (Zofran) 4 mg IV Q6H PRN PRN Reason: nausea or vomiting Sodium Chloride (Sodium Chloride Flush Syringe 10 Ml) 10 ml IV PRN PRN PRN Reason: LINE FLUSH Physical Examination - Vital Signs Vital Signs: Vital Signs Temp Pulse Resp BP Pulse Ox 98.0 F 71 16 157/110 99 12/28/16 11:23 12/28/16 11:23 12/28/16 11:23 12/28/16 11:23 12/28/16 11:23 Results - Laboratory Findings CBC and BMP: 12/29/16 05:35 12/29/16 05:35 Abnormal Lab Findings: Abnormal Labs 12/28/16 12/28/16 12/28/16 13:48 13:48 13:48 WBC 13.4 H MCV MCH 24 L RDW 16.7 H Seg Neutrophils # Man 8.4 H Potassium 3.5 L BUN Creatinine 0.4 L Glucose POC Glucose Hemoglobin A1c 8.2 H Calcium HDL Cholesterol 12/28/16 12/28/16 12/29/16 14:06 20:29 05:35 WBC MCV MCH RDW Seg Neutrophils # Man Potassium BUN Creatinine Glucose POC Glucose 131 H 137 H Hemoglobin A1c Calcium HDL Cholesterol 29 L 12/29/16 12/29/16 12/29/16 05:35 05:35 11:26 WBC MCV 78 L MCH 25 L RDW 16.3 H Seg Neutrophils # Man Potassium 3.4 L BUN 6 L Creatinine 0.5 L Glucose 111 H POC Glucose 183 H Hemoglobin A1c Calcium 8.2 L HDL Cholesterol 12/29/16 12/29/16 17:31 20:00 WBC MCV MCH RDW Seg Neutrophils # Man Potassium BUN Creatinine Glucose POC Glucose 108 H 204 H Hemoglobin A1c Calcium HDL Cholesterol
[2016-12-30] MEDS: LOVENOX SUB-Q SCH (10:15)
[2016-12-30] MEDS: NOVOLOG SUB-Q SCH (10:21)
[2016-12-30] MEDS: PLAVIX PO SCH (10:21)
[2016-12-30] MEDS: GLUCOTROL XL PO SCH (10:21)
== END 2016-12-30 10:30 | disposition home health service (06) | DRG 65 ==
LOC: ED 10:52 → 4A 16:09
PROVIDERS: ADMIT Internal Medicine; ATTEND Internal Medicine
DX: I63.9 Cerebral infarction, unspecified (principal); G81.91 Hemiplegia, unspecified affecting right dominant side; J45.909 Unspecified asthma, uncomplicated; E11.9 Type 2 diabetes mellitus without complications; F17.210 Nicotine dependence, cigarettes, uncomplicated; I10 Essential (primary) hypertension; D72.829 Elevated white blood cell count, unspecified; Z88.6 Allergy status to analgesic agent; Z86.73 Personal history of transient ischemic attack (TIA), and cerebral infarction without residual deficits; Z83.3 Family history of diabetes mellitus; Z82.49 Family history of ischemic heart disease and other diseases of the circulatory system; Z79.84 Long term (current) use of oral hypoglycemic drugs; Z79.899 Other long term (current) drug therapy
CPT/HCPCS: 36415; 70450; 70498; 70544; 70551; 80048; 80061; 82962; 83036; 83735; 84703; 85007; 85025; 85027; 85610; 85730; 93005; 93010; 93306; 93880; 96372; 99285; A9270-GY; J1650; J1815; Q9967

== ENCOUNTER 2017-02-16 11:29 | Emergency (ER) | payer SELFPAY ==
--- NOTE | 2017-02-16 12:13 | Cat Scan Report ---
CT HEAD WITHOUT CONTRAST: HISTORY: Neurological deficit. TECHNIQUE: Sequential 2.5mm CT images. COMPARISON: 12/28/16. FINDINGS: Cerebral Parenchyma: A 6 x 11 mm chronic focal infarct is identified in the left coronal radiata which has evolved since the previous CT performed on 12/24/16. The remaining brain parenchyma demonstrates normal attenuation on today's exam. No new areas of ischemia are appreciated on noncontrast CT. Cerebellum: Within normal limits. Brainstem: Within normal limits. Ventricles: Normal. Sella: Normal. Extra-axial spaces: Normal. Basal Cisterns: Normal. Intracranial Hemorrhage: None. Midline Shift: None. Calvarium: Normal. Sinuses: Normal. Mastoid Air Cells: Normal. Visualized Orbits: Normal. IMPRESSION: No acute intracranial process is identified. Chronic focal infarct in the left ledesma radiata as described.
[2017-02-16 12:28] LABS: Basophils % (Auto) 0.1 % (0.0-1.8); Eosinophils # (Auto) 0.2 K/mm3 (0.0-0.4); Eosinophils % (Auto) 2.5 % (0.0-4.3); Hematocrit 32.5 % (30.3-42.9); Hemoglobin 10.6 gm/dl (10.1-14.3); Lymphocytes # (Auto) 3.8 K/mm3 (1.2-5.4); Lymphocytes % (Auto) 39.7 % (13.4-35.0); Mean Corpuscular HGB Conc 33 % (30-34); Mean Corpuscular Volume 78 fl (79-97); Monocytes # (Auto) 0.4 K/mm3 (0.0-0.8); Monocytes % (Auto) 4.4 % (0.0-7.3); Platelet Count 206 K/mm3 (140-440); Red Blood Count 4.16 M/mm3 (3.65-5.03); Red Cell Distribution Width 17.6 % (13.2-15.2)
[2017-02-16 12:29] LABS: Mean Corpuscular Hemoglobin 26 pg (28-32)
[2017-02-16 12:38] LABS: INR 0.86 (0.87-1.13)
[2017-02-16 12:39] LABS: Partial Thromboplastin Time 26.8 Sec. (24.2-36.6)
[2017-02-16 12:52] LABS: BUN/Creatinine Ratio 14; Blood Urea Nitrogen 7 mg/dL (7-17); Calcium 8.6 mg/dL (8.4-10.2); Hemolysis Index 9
--- NOTE | 2017-02-16 13:55 | Emergency Department Report ---
ED Neuro Deficit HPI - General Chief Complaint: Neuro Symptoms/Deficit Stated Complaint: TIA Time Seen by Provider: 02/16/17 11:47 Source: patient, EMS Mode of arrival: Stretcher Limitations: No Limitations - History of Present Illness Initial Comments: Patient is a 36-year-old female with past medical history of CVA with some mild right sided weakness at baseline who is presenting with increased right upper and lower extremity weakness today. Patient states this morning several hours before her arrival here in the emergency department she became unable to lift her right arm. Patient also has slurred speech at the time. Patient did not look at her face to see if there is any facial drooping. The symptoms occurred approximately for 1 hour. Patient states the symptoms completely have resolved and she is back at her baseline. Patient denies chest pain shortness of breath nausea vomiting diarrhea fever chills at this time. Patient states that she is not taking any current medications which she has run out of her medications and does not know the name - Related Data Home Medications: Previous Rx's Medication Instructions Recorded Last Taken Type AtorvaSTATin [Lipitor] 40 mg PO QHS #30 tablet 12/30/16 Unknown Rx Clopidogrel [Plavix] 75 mg PO QDAY #30 tablet 12/30/16 Unknown Rx Metformin HCl 1,000 mg PO BID #30 tablet 12/30/16 Unknown Rx amLODIPine [Norvasc] 10 mg PO DAILY #30 tab 12/30/16 Unknown Rx glipiZIDE [glipiZIDE ER] 5 mg PO DAILY #30 tab.er.24 12/30/16 Unknown Rx Allergies/Adverse Reactions: Allergies Allergy/AdvReac Type Severity Reaction Status Date / Time aspirin Allergy Unknown Unknown Verified 12/28/16 11:41 ED Review of Systems ROS: Stated complaint: TIA Other details as noted in HPI Comment: All other systems reviewed and negative ED Past Medical Hx - Past Medical History Hx Diabetes: Yes Hx Asthma: Yes - Social History Smoking Status: Current Every Day Smoker - Medications Home Medications: Home Medications Medication Instructions Recorded Confirmed Last Taken Type AtorvaSTATin [Lipitor] 40 mg PO QHS #30 tablet 12/30/16 02/16/17 Unknown Rx Clopidogrel [Plavix] 75 mg PO QDAY #30 tablet 12/30/16 02/16/17 Unknown Rx Metformin HCl 1,000 mg PO BID #30 tablet 12/30/16 02/16/17 Unknown Rx amLODIPine [Norvasc] 10 mg PO DAILY #30 tab 12/30/16 02/16/17 Unknown Rx glipiZIDE [glipiZIDE ER] 5 mg PO DAILY #30 tab.er.24 12/30/16 02/16/17 Unknown Rx ED Neuro Physical Exam - General Limitations: No Limitations General appearance: alert, in no apparent distress - Head Head exam: Present: atraumatic, normocephalic - Eye Eye exam: Present: normal appearance - ENT ENT exam: Present: mucous membranes moist - Neck Neck exam: Present: normal inspection - Respiratory Respiratory exam: Present: normal lung sounds bilaterally. Absent: respiratory distress - Cardiovascular Cardiovascular Exam: Present: regular rate, normal rhythm. Absent: systolic murmur, diastolic murmur, rubs, gallop - GI/Abdominal GI/Abdominal exam: Present: soft, normal bowel sounds - Extremities Exam Extremities exam: Present: normal inspection - Back Exam Back exam: Present: normal inspection - Neurological Exam Neurological exam: Present: alert, oriented X3 - NIHSS Assessment Interval: Baseline 1a. Level of Consciousness: alert 1b. LOC Questions: answers correctly 1c. LOC Commands: performs tasks correctly 2. Best Gaze: normal 3. Visual: no visual loss 4. Facial Palsy: normal symmetrical movement 5b. Motor Arm Right: drift 5a. Motor Arm Left: no drift 6a. Motor Leg Left: no drift 6b. Motor Leg Right: no drift 7. Limb Ataxia: absent 8. Sensory: normal 9. Best Language: no aphasia 10. Dysarthria: normal 11. Extinction/Inattention: no abnormality Total Score: 1 Stroke Severity: Minor Stroke - Psychiatric Psychiatric exam: Present: normal affect, normal mood - Skin Skin exam: Present: warm, dry, intact, normal color. Absent: rash ED Course Vital Signs 02/16/17 02/16/17 11:56 13:06 Temperature 98.2 F Pulse Rate 78 Respiratory 16 16 Rate Blood Pressure 134/79 [Right] O2 Sat by Pulse 100 100 Oximetry - Lab Data Result diagrams: 02/16/17 12:14 02/16/17 12:14 Lab Results 02/16/17 02/16/17 02/16/17 Range/Units 12:14 12:14 12:14 WBC 9.5 (4.5-11.0) K/mm3 RBC 4.16 (3.65-5.03) M/mm3 Hgb 10.6 (10.1-14.3) gm/dl Hct 32.5 (30.3-42.9) % MCV 78 L (79-97) fl MCH 26 L (28-32) pg MCHC 33 (30-34) % RDW 17.6 H (13.2-15.2) % Plt Count 206 (140-440) K/mm3 Lymph % (Auto) 39.7 H (13.4-35.0) % [place] % (Auto) 4.4 (0.0-7.3) % Eos % (Auto) 2.5 (0.0-4.3) % Baso % (Auto) 0.1 (0.0-1.8) % Lymph # 3.8 (1.2-5.4) K/mm3 [place] # 0.4 (0.0-0.8) K/mm3 Eos # 0.2 (0.0-0.4) K/mm3 Baso # 0.0 (0.0-0.1) K/mm3 Seg Neutrophils % 53.3 (40.0-70.0) % Seg Neutrophils # 5.0 (1.8-7.7) K/mm3 PT 12.1 L (12.2-14.9) Sec. INR 0.86 L (0.87-1.13) APTT 26.8 (24.2-36.6) Sec. Thrombin Time (15.1-19.6) Sec. Sodium 140 (137-145) mmol/L Potassium 3.8 (3.6-5.0) mmol/L Chloride 101.4 (98-107) mmol/L Carbon Dioxide 25 (22-30) mmol/L Anion Gap 17 mmol/L BUN 7 (7-17) mg/dL Creatinine 0.5 L (0.7-1.2) mg/dL Estimated GFR > 60 ml/min BUN/Creatinine Ratio 14 % Glucose 232 H (65-100) mg/dL Calcium 8.6 (8.4-10.2) mg/dL Troponin T < 0.010 (0.00-0.029) ng/mL 02/16/17 Range/Units 12:14 WBC (4.5-11.0) K/mm3 RBC (3.65-5.03) M/mm3 Hgb (10.1-14.3) gm/dl Hct (30.3-42.9) % MCV (79-97) fl MCH (28-32) pg MCHC (30-34) % RDW (13.2-15.2) % Plt Count (140-440) K/mm3 Lymph % (Auto) (13.4-35.0) % [place] % (Auto) (0.0-7.3) % Eos % (Auto) (0.0-4.3) % Baso % (Auto) (0.0-1.8) % Lymph # (1.2-5.4) K/mm3 [place] # (0.0-0.8) K/mm3 Eos # (0.0-0.4) K/mm3 Baso # (0.0-0.1) K/mm3 Seg Neutrophils % (40.0-70.0) % Seg Neutrophils # (1.8-7.7) K/mm3 PT (12.2-14.9) Sec. INR (0.87-1.13) APTT (24.2-36.6) Sec. Thrombin Time 16.3 (15.1-19.6) Sec. Sodium (137-145) mmol/L Potassium (3.6-5.0) mmol/L Chloride (98-107) mmol/L Carbon Dioxide (22-30) mmol/L Anion Gap mmol/L BUN (7-17) mg/dL Creatinine (0.7-1.2) mg/dL Estimated GFR ml/min BUN/Creatinine Ratio % Glucose (65-100) mg/dL Calcium (8.4-10.2) mg/dL Troponin T (0.00-0.029) ng/mL Critical care attestation.: If time is entered above; I have spent that time in minutes in the direct care of this critically ill patient, excluding procedure time. ED Disposition Condition: Stable Referrals: PRIMARY CARE, [Primary Care Provider] - 3-5 Days
--- NOTE | 2017-02-16 15:01 | Event Note ---
Date: 02/16/17 Patient seen and evaluated Patient had CVA with rt side weakness in Dec 2016. Recovered completely.Had some weakness today on Rt side which lasted for a few minutes Has recovered completely. Dis Dx TIA Patient to be compliant with plavix and Statins F/u with PCp and Neuro as outpatient. To come back if symptoms recur.
[2017-02-16 15:56] VITALS: BP 139/83
== END 2017-02-16 15:55 | disposition home or self-care (01) ==
LOC: ED 11:29
DX: R53.1 Weakness (principal); E11.9 Type 2 diabetes mellitus without complications; F17.200 Nicotine dependence, unspecified, uncomplicated; Z88.6 Allergy status to analgesic agent
CPT/HCPCS: 36415; 70450; 80048; 84484; 85025; 85610; 85670; 85730; 93005; 93010; 99285

== ENCOUNTER 2019-08-02 22:43 | Inpatient (IN) | payer OTHER ==
[2019-08-03] MEDS ORDERED: SODIUM CHLORIDE 0.9% 1000 ML 1,000 ML IV ONE (00:14)
[2019-08-03] MEDS ORDERED: HYDROmorphone 1 MG/1 ML INJ IV ONE (00:14)
--- NOTE | 2019-08-03 00:42 | Emergency Department Report ---
- General Chief complaint: Skin/Abscess/Foreign Body Stated complaint: BOIL ON BUTTOCKS Time Seen by Provider: 08/03/19 00:04 Source: patient, EMS Mode of arrival: Ambulatory Limitations: No Limitations - History of Present Illness Initial comments: This is a 39-year-old female nontoxic, well nourished in appearance, no acute signs of distress presents to the ED with c/o of swelling, redness and pain to bilateral buttock area. Patient denies any pus or drainage. Patient denies any fever, chills, nausea, vomiting, chest pain, shortness of breath, headache or stiff neck. Patient stated allergies to aspirin. MD complaint: abscess/boil -: days(s) Location: buttocks Severity: moderate Severity scale (0 -10): 8 Quality: aching Consistency: constant Improves with: none Worsens with: none Associated symptoms: denies other symptoms Treatments Prior to Arrival: none - Related Data Previous Rx's Medication Instructions Recorded Last Taken Type AtorvaSTATin [Lipitor] 40 mg PO QHS #30 tablet 02/16/17 Unknown Rx Clopidogrel [Plavix] 75 mg PO QDAY #30 tablet 02/16/17 Unknown Rx Metformin HCl [metFORMIN] 1,000 mg PO BID #60 tablet 02/16/17 Unknown Rx amLODIPine 10 mg PO DAILY #30 tab 02/16/17 Unknown Rx glipiZIDE [glipiZIDE ER] 5 mg PO DAILY 60 Days #30 tab.er.24 02/16/17 Unknown Rx Allergies Allergy/AdvReac Type Severity Reaction Status Date / Time aspirin Allergy Unknown Unknown Verified 12/28/16 11:41 Abscess Boil HPI - HPI Chief Complaint: Skin/Abscess/Foreign Body Stated Complaint: BOIL ON BUTTOCKS Time Seen by Provider: 08/03/19 00:04 Home Medications: Previous Rx's Medication Instructions Recorded Last Taken Type AtorvaSTATin [Lipitor] 40 mg PO QHS #30 tablet 02/16/17 Unknown Rx Clopidogrel [Plavix] 75 mg PO QDAY #30 tablet 02/16/17 Unknown Rx Metformin HCl [metFORMIN] 1,000 mg PO BID #60 tablet 02/16/17 Unknown Rx amLODIPine 10 mg PO DAILY #30 tab 02/16/17 Unknown Rx glipiZIDE [glipiZIDE ER] 5 mg PO DAILY 60 Days #30 tab.er.24 02/16/17 Unknown Rx Allergies/Adverse Reactions: Allergies Allergy/AdvReac Type Severity Reaction Status Date / Time aspirin Allergy Unknown Unknown Verified 12/28/16 11:41 ED Review of Systems ROS: Stated complaint: BOIL ON BUTTOCKS Other details as noted in HPI Constitutional: denies: chills, fever Eyes: denies: eye pain, eye discharge, vision change ENT: denies: ear pain, throat pain Respiratory: denies: cough, shortness of breath, wheezing Cardiovascular: denies: chest pain, palpitations Endocrine: no symptoms reported Gastrointestinal: denies: abdominal pain, nausea, diarrhea Genitourinary: denies: urgency, dysuria, discharge Musculoskeletal: denies: back pain, joint swelling, arthralgia Skin: denies: rash, lesions Neurological: denies: headache, weakness, paresthesias Psychiatric: denies: anxiety, depression Hematological/Lymphatic: denies: easy bleeding, easy bruising ED Past Medical Hx - Past Medical History Previous Medical History?: Yes Hx Hypertension: Yes Hx Diabetes: Yes Hx Asthma: Yes - Surgical History Past Surgical History?: No - Social History Smoking Status: Current Every Day Smoker Substance Use Type: Marijuana - Medications Home Medications: Home Medications Medication Instructions Recorded Confirmed Last Taken Type AtorvaSTATin [Lipitor] 40 mg PO QHS #30 tablet 02/16/17 Unknown Rx Clopidogrel [Plavix] 75 mg PO QDAY #30 tablet 02/16/17 Unknown Rx Metformin HCl [metFORMIN] 1,000 mg PO BID #60 tablet 02/16/17 02/16/17 Unknown Rx amLODIPine 10 mg PO DAILY #30 tab 02/16/17 Unknown Rx glipiZIDE [glipiZIDE ER] 5 mg PO DAILY 60 Days #30 tab.er.24 02/16/17 Unknown Rx ED Physical Exam - General Limitations: No Limitations General appearance: alert, in no apparent distress - Head Head exam: Present: atraumatic, normocephalic - Neck Neck exam: Present: normal inspection, full ROM. Absent: tenderness, meningismus, lymphadenopathy - Extremities Exam Extremities exam: Present: normal inspection, full ROM - Back Exam Back exam: Present: normal inspection, full ROM. Absent: tenderness, CVA t enderness (R), CVA tenderness (L), muscle spasm, paraspinal tenderness, vertebral tenderness, rash noted - Neurological Exam Neurological exam: Present: alert, oriented X3, normal gait - Psychiatric Psychiatric exam: Present: normal affect, normal mood - Skin Skin exam: Present: warm, dry, intact, normal color. Absent: rash - Other Other exam information: bilateral redness and pain. Right sided buttock swelling. ED Course Vital Signs 08/02/19 23:41 Temperature 98.1 F Pulse Rate 114 H Respiratory 18 Rate Blood Pressure 113/56 O2 Sat by Pulse 96 Oximetry - Reevaluation(s) Reevaluation #1: 08/03/19 00:42 Patient is speaking in full sentences with no signs of distress noted. - Consultations Consultation #1: 08/03/19 02:52 Patient has been consulted with Raphael Feng about patient history, physical exam, and labs/CT results and agrees for admission. ED Medical Decision Making - Lab Data Result diagrams: 08/03/19 00:21 08/03/19 00:21 Lab Results 08/03/19 08/03/19 08/03/19 Range/Units 00:21 00:21 00:21 WBC 38.5 H (4.5-11.0) K/mm3 RBC 3.82 (3.65-5.03) M/mm3 Hgb 8.7 L (10.1-14.3) gm/dl Hct 27.1 L (30.3-42.9) % MCV 71 L (79-97) fl MCH 23 L (28-32) pg MCHC 32 (30-34) % RDW 18.3 H (13.2-15.2) % Plt Count 169 (140-440) K/mm3 Seg Neutrophils % Intelligence Consultant Sodium 135 L (137-145) mmol/L Potassium 3.3 L (3.6-5.0) mmol/L Chloride 95.8 L (98-107) mmol/L Carbon Dioxide 23 (22-30) mmol/L Anion Gap 20 mmol/L BUN 19 H (7-17) mg/dL Creatinine 1.2 (0.7-1.2) mg/dL Estimated GFR > 60 ml/min BUN/Creatinine Ratio 16 % Glucose 322 H (65-100) mg/dL Lactic Acid (0.7-2.0) mmol/L Calcium 8.8 (8.4-10.2) mg/dL HCG, Qual Negative (Negative) 08/03/19 Range/Units 01:46 WBC (4.5-11.0) K/mm3 RBC (3.65-5.03) M/mm3 Hgb (10.1-14.3) gm/dl Hct (30.3-42.9) % MCV (79-97) fl MCH (28-32) pg MCHC (30-34) % RDW (13.2-15.2) % Plt Count (140-440) K/mm3 Seg Neutrophils % Sodium (137-145) mmol/L Potassium (3.6-5.0) mmol/L Chloride (98-107) mmol/L Carbon Dioxide (22-30) mmol/L Anion Gap mmol/L BUN (7-17) mg/dL Creatinine (0.7-1.2) mg/dL Estimated GFR ml/min BUN/Creatinine Ratio % Glucose (65-100) mg/dL Lactic Acid 1.70 (0.7-2.0) mmol/L Calcium (8.4-10.2) mg/dL HCG, Qual (Negative) - Radiology Data Referring Physician: ARISTIDES WHITE Patient Name: KELLY VALDOVINOS Date of : 1980 Sex: Female Report Date: 2019-08-03 Report Status: [place] [address] Cat Scan Report Signed Patient: KELLY COVINGTON MR#: [id number] : 1980 Acct:[id number] Age/Sex: 39 / F ADM Date: 08/02/19 Loc: ED [facility] Dr: Ordering Physician: ARISTIDES WHITE NP Date of Service: 08/03/19 Procedure(s): CT pelvis w con Accession Number(s): [id number] cc: ARISTIDES WHITE NP CT pelvis w con INDICATION: Pt complains of perianal pain and swelling, abscess. TECHNIQUE: All CT scans at this location are performed using CT dose reduction for ALARA by means of automated exposure control. COMPARISON: None available. FINDINGS: There is considerable abnormal fluid and gas in the soft tissues of the perineum bilaterally, worse on the right, with gas extending anteriorly and superiorly into the subcutaneous tissues of the right lower pelvis. Appearance is very worrisome for bilateral perineal abscess. There are several abnormal, complex but mostly solid mass is in the retroperitoneum and pelvis. Some could represent uterine fibroids, but the more superior mass is appear completely separate from the uterus and may represent large masses adenopathy. There is also what is thought to be an abnormal fluid collection in the right lower pelvis. No skeletal lesions. IMPRESSION: 1. Bilateral perineal abscesses 2. Multiple right-sided pelvic or abdominal masses. Some could be uterine fibroids, but the more superior mass appears separate from the uterus and could represent inflammatory masses or masses of adenopathy. Signer Name: Adria Vega MD Signed: 08/03/2019 2:40 AM Workstation Name: [id number] Transcribed By: TM Dictated By: Adria Vega MD Electronically Authenticated By: Adria Vega MD Signed Date/Time: 08/03/19239 DD/ 8 TD/TT: - Medical Decision Making 39-year-old female that presents with leukocytosis and perianal abscess. Patient is stable and was examined by me. Patient admitted with DR. Santiago. At time of admission, the patient does not seem toxic or ill in appearance. No acute signs of distress noted. Patient agrees to admission treatment plan of care. No further questions noted by the patient. Critical care attestation.: If time is entered above; I have spent that time in minutes in the direct care of this critically ill patient, excluding procedure time. ED Disposition Clinical Impression: Perianal abscess Leukocytosis Qualifiers: Leukocytosis type: unspecified Qualified Code(s): D72.829 - Elevated white blood cell count, unspecified Disposition: -09 OP ADMIT IP TO THIS HOSP Is pt being admited?: Yes Condition: Stable
[2019-08-03 01:12] LABS: Hematocrit 27.1 % (30.3-42.9); Hemoglobin 8.7 gm/dl (10.1-14.3); Mean Corpuscular HGB Conc 32 % (30-34); Mean Corpuscular Volume 71 fl (79-97); Platelet Count 169 K/mm3 (140-440); Red Blood Count 3.82 M/mm3 (3.65-5.03); Red Cell Distribution Width 18.3 % (13.2-15.2)
[2019-08-03 01:34] LABS: BUN/Creatinine Ratio 16; Blood Urea Nitrogen 19 mg/dL (7-17); Calcium 8.8 mg/dL (8.4-10.2); Hemolysis Index 2
[2019-08-03] MEDS ORDERED: SODIUM CHLORIDE 0.9% 1000 ML 1,500 ML IV ONE (01:35)
[2019-08-03] MEDS ORDERED: POTASSIUM CHLORIDE ER 20 MEQ TAB PO ONE (01:36)
--- NOTE | 2019-08-03 02:44 | Cat Scan Report ---
CT pelvis w con INDICATION: Pt complains of perianal pain and swelling, abscess. TECHNIQUE: All CT scans at this location are performed using CT dose reduction for ALARA by means of automated e xposure control. COMPARISON: None available. FINDINGS: There is considerable abnormal fluid and gas in the soft tissues of the perineum bilaterally, worse o n the right, with gas extending anteriorly and superiorly into the subcutaneous tissues of the right lower pelvis. Appearance is very worrisome for bilateral perineal abscess. There are several abnormal, complex but mostly solid mass is in the retroperitoneum and pelvis. Some could represent uterine fibroids, but the more superior mass is appear completely separate from the u terus and may represent large masses adenopathy. There is also what is thought to be an abnormal flui d collection in the right lower pelvis. No skeletal lesions. IMPRESSION: 1. Bilateral perineal abscesses 2. Multiple right-sided pelvic or abdominal masses. Some could be uterine fibroids, but the more supe rior mass appears separate from the uterus and could represent inflammatory masses or masses of adeno nato. Signer Name: Adria Vega MD Signed: 08/03/2019 2:40 AM Workstation Name: [id number]
--- NOTE | 2019-08-03 03:55 | History and Physical Report ---
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 She states there was a small amount of drainage earlier today. She endorses a f ever a couple days ago and nausea and vomiting since Tuesday, 07/30. She states that the "boil" was noticed on Tuesday, 07/29 and it started hurting and spread to both buttocks. She also states she noticed mold in her bathtub on on 07/31 and she soaked in her tub on 07/28. At the time of my exam she states she has a headache. She denies chest pain, chills, shortness of breath, weight loss, cough. She denies any recent sick contacts, COVID exposure, or recent travel. ED workup revealed leukocytosis (WBC 38.5), lactic acidosis (LA 1.7), hypokalemia (K 3.3), hyperglycemia (glucose 322) and a CT pelvis with contrast revealed bilateral perineal abscesses. Past History Past Medical History: diabetes, hypertension, stroke, other (TIA, Asthma) Past Surgical History: No surgical history Social history: single, Lives alone, smoking (1 pack per 2-3 days, daily marijuana use), other (social ETOH use) Family history: hypertension, other (COPD, CHF, asthma) Medications and Allergies Allergies Allergy/AdvReac Type Severity Reaction Status Date / Time aspirin Allergy Unknown Unknown Verified 12/28/16 11:41 Home Medications Medication Instructions Recorded Confirmed Last Taken Type RX: AtorvaSTATin [Lipitor] 40 mg PO QHS #30 tablet 02/16/17 Unknown Rx RX: Clopidogrel [Plavix] 75 mg PO QDAY #30 tablet 02/16/17 Unknown Rx RX: Metformin HCl [metFORMIN] 1,000 mg PO BID #60 tablet 02/16/17 02/16/17 Unknown Rx RX: amLODIPine 10 mg PO DAILY #30 tab 02/16/17 Unknown Rx RX: glipiZIDE [glipiZIDE ER] 5 mg PO DAILY 60 Days #30 tab.er.24 02/16/17 Unknown Rx Review of Systems All systems: negative Constitutional: fever, poor appetite, no weight loss, no weight gain, no chills, no sweats, no fatigue Ears, nose, mouth and throat: no ear pain, no ear discharge, no nasal congestion, no nasal discharge Breasts: normal Cardiovascular: high blood pressure, no chest pain, no palpitations, no edema, no shortness of breath Respiratory: no cough, no shortness of breath Gastrointestinal: nausea, vomiting, no abdominal pain Genitourinary Female: no pelvic pain, no vaginal discharge Menstruation: other ("I may have started my period") Rectal: no pain, no bleeding Musculoskeletal: leg numbness/tingling (Right leg limp residual from CVA), no neck stiffness, no neck pain Integumentary: redness, wounds (buttock wound with pain, redness, slight drainge, and "need to be drained") Neurological: weakness, tingling (right UE and LE) Psychiatric: no anxiety, no disorientation Endocrine: no cold intolerance, no excessive thirst Hematologic/Lymphatic: no easy bruising, no easy bleeding Allergic/Immunologic: no allergic rhinitis, no wheezing, no persistent infections Exam - Constitutional Vitals: Temp Pulse Resp BP Pulse Ox 98.1 F 114 H 18 113/56 96 08/02/19 23:41 08/02/19 23:41 08/02/19 23:41 08/02/19 23:41 08/02/19 23:41 General appearance: Present: no acute distress, well-nourished - EENT Eyes: Present: PERRL, EOM intact ENT: hearing intact - Neck Neck: Present: supple, normal ROM - Respiratory Respiratory effort: normal Respiratory: bilateral: CTA - Cardiovascular Rhythm: regular Heart Sounds: Present: S1 & S2. Absent: systolic murmur, diastolic murmur - Extremities Extremities: no ischemia, pulses intact, pulses symmetrical, No edema, normal color Peripheral Pulses: within normal limits - Abdominal General gastrointestinal: Present: soft, non-tender, non-distended, normal bowel sounds Female genitourinary: Present: normal - Integumentary Integumentary: Present: erythema (Redness to bilateral butock which is greater on the right, warm to touch and hard on palpation but not tender according to the patient "after my pain medication" ) - Musculoskeletal Musculoskeletal: strength equal bilaterally - Psychiatric Psychiatric: appropriate mood/affect, intact judgment & insight - Neurologic Neurologic: CNII-XII intact, focal deficits, moves all extremities - Allied Health Allied health notes reviewed: nursing HEART Score - HEART Score History: Slightly suspicious EKG: Normal Age: < 45 Risk factors: 1-2 risk factors Results - Labs CBC & Chem 7: 08/03/19 00:21 08/03/19 00:21 Labs: Laboratory Last Values WBC 38.5 K/mm3 (4.5-11.0) H 08/03/19 00:21 RBC 3.82 M/mm3 (3.65-5.03) 08/03/19 00:21 Hgb 8.7 gm/dl (10.1-14.3) L 08/03/19 00:21 Hct 27.1 % (30.3-42.9) L 08/03/19 00:21 MCV 71 fl (79-97) L 08/03/19 00:21 MCH 23 pg (28-32) L 08/03/19 00: MCHC 32 % (30-34) 08/03/19 00:21 RDW 18.3 % (13.2-15.2) H 08/03/19 00:21 Plt Count 169 K/mm3 (140-440) 08/03/19 00:21 Seg Neutrophils % Curtain Stitcher 08/03/19 00:21 Sodium 135 mmol/L (137-145) L 08/03/19 00:21 Potassium 3.3 mmol/L (3.6-5.0) L 08/03/19 00:21 Chloride 95.8 mmol/L (98-107) L 08/03/19 00:21 Carbon Dioxide 23 mmol/L (22-30) 08/03/19 00:21 Anion Gap 20 mmol/L 08/03/19 00:21 BUN 19 mg/dL (7-17) H 08/03/19 00:21 Creatinine 1.2 mg/dL (0.7-1.2) 08/03/19 00:21 Estimated GFR > 60 ml/min 08/03/19 00:21 BUN/Creatinine Ratio 16 % 08/03/19 00:21 Glucose 322 mg/dL (65-100) H 08/03/19 00:21 Lactic Acid 1.70 mmol/L (0.7-2.0) 08/03/19 01:46 Calcium 8.8 mg/dL (8.4-10.2) 08/03/19 00:21 HCG, Qual Negative (Negative) 08/03/19 00:21 - Imaging and Cardiology CT scan - pelvis: report reviewed - Diagnostic Impressions Diagnostic Impressions: 1. Pelvis with contrast revealed bilateral perineal abscesses. 2. Multiple right-sided pelvic or abdominal masses possibly uterine fibroids but more superior mass appears separate from the uterus and could represent inflammatory masses or masses of adenopathy Lawson/IV: IV Catheter Type [Left INT / Saline Lock Antecubital] Assessment and Plan VTE prophylaxis?: Mechanical Plan of care discussed with patient/family: Yes - Patient Problems (1) Perianal abscess Current Visit: Yes Status: Acute Plan to address problem: -Place surgical consult to Dr. Painting for I&D of abscess -Culture and sensitivity of the drainage -IV Clindamycin, Flagyl, Zosyn (2) Leukocytosis Current Visit: Yes Status: Acute Qualifiers: Leukocytosis type: bandemia Qualified Code(s): D72.825 - Bandemia Plan to address problem: - I&D of abscess -Abx therapy of Clindamycin, Flagyl, and Zosyn -08/02: BC obtained (3) Diabetes Current Visit: No Status: Chronic Plan to address problem: - BG ACHS - Hypoglycemia protocol - SSI (4) Hypokalemia Current Visit: Yes Status: Acute Plan to address problem: -K-Dur ordered in ED -will f/u BMP (5) Hypertension Current Visit: No Status: Chronic (6) Lactic acidosis Current Visit: Yes Status: Acute Plan to address problem: -NS bolus of 2500 received in the ED (7) DVT prophylaxis Current Visit: Yes Status: Acute Plan to address problem: -SCDs while in bed (8) Full code status Current Visit: Yes Status: Acute
[2019-08-03 03:56] LABS: Basophils % (Manual) 0 % (0.0-1.8); Eosinophils % (Manual) 0 % (0.0-4.3); Total Cells Counted 100
[2019-08-03] MEDS ORDERED: ACETAMINOPHEN 325 MG TAB PO PRN (03:58)
[2019-08-03] MEDS ORDERED: ONDANSETRON 4 MG/2 ML INJ IV PRN ×2 (03:58→10:46)
[2019-08-03] MEDS ORDERED: DEXTROSE 50% IN WATER (25GM) 50 ML SYRINGE IV PRN (03:58)
[2019-08-03 04:00] LABS: Burr Cells Few; Hypochromasia 1+
[2019-08-03 04:01] LABS: Ovalocytes Rare
[2019-08-03 04:02] LABS: Platelet Estimate Cons
[2019-08-03 04:03] LABS: Large Platelets Few
[2019-08-03] MEDS: MORPHINE 2 MG/1 ML INJ IV PRN (05:50)
[2019-08-03] MEDS: metroNIDAZOLE/NS 500 MG/100 ML 500 MG/100 ML BAG IV SCH ×2 (06:02→14:34)
[2019-08-03] MEDS: PIPERACIL/TAZOBACTA 4.5/NS 100 4.5 GM/100 ML VIAL IV SCH ×3 (06:02→22:44)
[2019-08-03] MEDS: SODIUM CHLORIDE 0.9% 1000 ML 1,000 ML IV SCH ×2 (06:02→14:40)
[2019-08-03] MEDS: INSULIN LISPRO 100 UNIT/ML SUB-Q SCH ×4 (08:00→22:38)
--- NOTE | 2019-08-03 10:06 | Anesthesia Consultation ---
Anesthesia Consult and Med Hx Date of service: 08/03/19 - Airway Anesthetic Teeth Evaluation: Dentures (upper), Partials (lower) ROM Head & Neck: Adequate Mental/Hyoid Distance: Adequate Mallampati Class: Class II Intubation Access Assessment: Probably Good - Pulmonary Exam CTA: Yes - Cardiac Exam Cardiac Exam: RRR - Pre-Operative Health Status ASA Pre-Surgery Classification: ASA3, Emergency Proposed Anesthetic Plan: General - Pulmonary Hx Smoking: Yes (1/2 PPD) Hx Asthma: Yes (no exacerbation or inhaler use in several years) Hx Respiratory Symptoms: No Hx Sleep Apnea: No - Cardiovascular System Hx Hypertension: Yes Hx Heart Attack/AMI: No Hx Percutaneous Transluminal Coronary Angioplasty (PTCA): No Hx Cardia Arrhythmia: No - Central Nervous System CVA: Yes (2010 w/ residual right sided weakness) - Gastrointestinal Hx Gastroesophageal Reflux Disease: No - Endocrine Hx Renal Disease: No Hx Liver Disease: No Hx Non-Insulin Dependent Diabetes: Yes (poorly controlled) Hx Thyroid Disease: No - Hematic Hx Anemia: Yes - Other Systems Hx Substance Use: Yes (THC) Hx Obesity: No (BMI 28) - Additional Comments Anesthesia Medical History Comments: No prior GA. No FHx anesthetic complications. PMH DM, HTN, prior CVA smoking presenting scheduled for debridement of perianal infection. HD stable with mild tachycardia.
--- NOTE | 2019-08-03 10:06 | Anesthesia Day of Surgery ---
Anesthesia Day of Surgery - Day of Surgery Patient Examined: Yes Patient H&P Reviewed: Yes Patient is NPO: Yes
[2019-08-03] MEDS ORDERED: BUPIVACAINE/PF (0.5%) 5 MG/1 ML 30 ML VIAL INFILTRATI ONE (10:08)
[2019-08-03] MEDS ORDERED: LIDOCAINE (1%) 10 MG/1 ML VIAL 20 ML MDV ONE (10:08)
--- NOTE | 2019-08-03 10:12 | Consultation ---
History of Present Illness Consult date: 08/03/19 Chief complaint: Buttock abscess - History of present illness History of present illness: 39-year-old female with a past medical history of diabetes, hypertension, asthma who presented to the emergency room with pain of her right buttock and swelling. The patient states she first noticed a boil in that area 5 days ago and the day after she noticed that she it had spread significantly. She states yesterday she could not tolerate the pain anymore and decided to come to the emergency room. She reports subjective fevers. No drainage from the area. She has never had anything like this in the past. She states her last hemoglobin A1c was 8. Past History Past Medical History: diabetes, hypertension, stroke, other (TIA, Asthma) Past Surgical History: No surgical history Social history: single, Lives alone, smoking (1 pack per 2-3 days, daily marijuana use), other (social ETOH use) Family history: hypertension, other (COPD, CHF, asthma) Medications and Allergies Allergies Allergy/AdvReac Type Severity Reaction Status Date / Time aspirin Allergy Unknown Unknown Verified 12/28/16 11:41 Home Medications Medication Instructions Recorded Confirmed Last Taken Type AtorvaSTATin [Lipitor] 40 mg PO QHS #30 tablet 02/16/17 Unknown Rx Clopidogrel [Plavix] 75 mg PO QDAY #30 tablet 02/16/17 Unknown Rx Metformin HCl [metFORMIN] 1,000 mg PO BID #60 tablet 02/16/17 02/16/17 Unknown Rx amLODIPine 10 mg PO DAILY #30 tab 02/16/17 Unknown Rx glipiZIDE [glipiZIDE ER] 5 mg PO DAILY 60 Days #30 tab.er.24 02/16/17 Unknown Rx Active Meds: Active Medications Acetaminophen (Tylenol) 650 mg PO Q4H PRN PRN Reason: Pain MILD(1-3)/Fever >100.5/MCKEON Dextrose (D50w (25gm) Syringe) 0 ml IV Q30MIN PRN; Protocol PRN Reason: Hypoglycemia Sodium Chloride (Nacl 0.9% 1000 Ml) 1,000 mls @ 125 mls/hr IV DIRECT LUIS Last Admin: 08/03/19 06:02 Dose: 125 mls/hr Documented by: Piperacillin Sod/Tazobactam Sod (Zosyn/Ns 4.5gm/100ml) 4.5 gm in 100 mls @ 200 mls/hr IV Q8HR LUIS; Protocol Last Infusion: 08/03/19 07:21 Dose: Infused Documented by: Metronidazole (Flagyl 500 Mg/100 Ml) 500 mg in 100 mls @ 100 mls/hr IV Q8HR LUIS; Protocol Last Infusion: 08/03/19 07:21 Dose: Infused Documented by: Insulin Human Lispro (Humalog) 0 unit SUB-Q ACHS LUIS; Protocol Last Admin: 08/03/19 08:54 Dose: 6 unit Documented by: Morphine Sulfate (Morphine) 2 mg IV Q4H PRN PRN Reason: Pain, Moderate (4-6) Last Admin: 08/03/19 05:50 Dose: 2 mg Documented by: Ondansetron HCl (Zofran) 4 mg IV Q8H PRN PRN Reason: Nausea And Vomiting Sodium Chloride (Sodium Chloride Flush Syringe 10 Ml) 10 ml IV BID LUIS Sodium Chloride (Sodium Chloride Flush Syringe 10 Ml) 10 ml IV PRN PRN PRN Reason: LINE FLUSH Review of Systems All systems: negative (10 point review of systems was performed negative except for that listed in HPI) Exam Vital Signs Temp Pulse Resp BP Pulse Ox 98.1 F 114 H 18 113/56 96 08/02/19 23:41 08/02/19 23:41 08/02/19 23:41 08/02/19 23:41 08/02/19 23:41 Narrative exam: Gen.: Awake, alert, oriented 3. No apparent distress ENT: Trachea midline. No lymphadenopathy. No scleral icterus or conjunctival pallor CV: S1, S2 present Respiratory: No audible wheezes Extremities: No clubbing, cyanosis, edema Skin: There is significant erythema and cellulitic changes of the right inner buttock with a central area of necrotic skin. There is no drainage. There is tenderness to palpation. Results - Labs 08/03/19 00:21 08/03/19 00:21 Abnormal lab results 08/03/19 08/03/19 08/03/19 Range/Units 00:21 00:21 00:21 WBC 38.5 H (4.5-11.0) K/mm3 Hgb 8.7 L (10.1-14.3) gm/dl Hct 27.1 L (30.3-42.9) % MCV 71 L (79-97) fl MCH 23 L (28-32) pg RDW 18.3 H (13.2-15.2) % Lymphocytes % (Manual) 2.0 L (13.4-35.0) % Seg Neutrophils # Man 26.6 H (1.8-7.7) K/mm3 Lymphocytes # (Manual) 0.8 L (1.2-5.4) K/mm3 Monocytes # (Manual) 1.2 H (0.0-0.8) K/mm3 Sodium 135 L (137-145) mmol/L Potassium 3.3 L (3.6-5.0) mmol/L Chloride 95.8 L (98-107) mmol/L BUN 19 H (7-17) mg/dL Glucose 322 H (65-100) mg/dL POC Glucose (70-105) Hemoglobin A1c 8.9 H (4-6) % 08/03/19 08/03/19 Range/Units 07:42 10:09 WBC (4.5-11.0) K/mm3 Hgb (10.1-14.3) gm/dl Hct (30.3-42.9) % MCV (79-97) fl MCH (28-32) pg RDW (13.2-15.2) % Lymphocytes % (Manual) (13.4-35.0) % Seg Neutrophils # Man (1.8-7.7) K/mm3 Lymphocytes # (Manual) (1.2-5.4) K/mm3 Monocytes # (Manual) (0.0-0.8) K/mm3 Sodium (137-145) mmol/L Potassium (3.6-5.0) mmol/L Chloride (98-107) mmol/L BUN (7-17) mg/dL Glucose (65-100) mg/dL POC Glucose 307 H 288 H (70-105) Hemoglobin A1c (4-6) % Diabetes panel 08/03/19 08/03/19 Range/Units 00:21 00:21 Sodium 135 L (137-145) mmol/L Potassium 3.3 L (3.6-5.0) mmol/L Chloride 95.8 L (98-107) mmol/L Carbon Dioxide 23 (22-30) mmol/L BUN 19 H (7-17) mg/dL Creatinine 1.2 (0.7-1.2) mg/dL Glucose 322 H (65-100) mg/dL Hemoglobin A1c 8.9 H (4-6) % Calcium 8.8 (8.4-10.2) mg/dL Calcium panel 08/03/19 Range/Units 00:21 Calcium 8.8 (8.4-10.2) mg/dL Pituitary panel 08/03/19 Range/Units 00:21 Sodium 135 L (137-145) mmol/L Potassium 3.3 L (3.6-5.0) mmol/L Chloride 95.8 L (98-107) mmol/L Carbon Dioxide 23 (22-30) mmol/L BUN 19 H (7-17) mg/dL Creatinine 1.2 (0.7-1.2) mg/dL Glucose 322 H (65-100) mg/dL Calcium 8.8 (8.4-10.2) mg/dL Adrenal panel 08/03/19 Range/Units 00:21 Sodium 135 L (137-145) mmol/L Potassium 3.3 L (3.6-5.0) mmol/L Chloride 95.8 L (98-107) mmol/L Carbon Dioxide 23 (22-30) mmol/L BUN 19 H (7-17) mg/dL Creatinine 1.2 (0.7-1.2) mg/dL Glucose 322 H (65-100) mg/dL Calcium 8.8 (8.4-10.2) mg/dL - Imaging CT scan - pelvis: report reviewed, image reviewed Assessment and Plan 39-year-old female with 1. necrotizing fasciitis of the buttock 2. sepsis 2/2 #1 3. diabetes Plan: 1. NPO 2. IVF 3. IV abx 4. ID consult 5. prn pain control 6. wound care consult for post op management 7. DVT ppx 8. strict glucose control, obtain hemoglobin A1c 9. Recommend emergent incision and drainage, debridement of necrotizing fasciitis of the buttock. I discussed the findings of the CT scan and the locations of necrotizing fasciitis to the patient. I explained all risks, benefits, alternatives to surgical management. Consent obtained for incision and drainage of abscess, debridement of necrotizing fasciitis of the buttock/perineum. We will proceed to the OR this a.m. 10. We will transfer to the [facility] after surgery Explained to the patient that she may need to be taken back to the operating carmen m multiple times in order to facilitate dressing changes and further debridement. The patient understands. She states that she has no family or friends in the area and has pets at home that she is concerned about. She states that she cannot stay in the hospital for several days. I offered her the assistance of case management. Will order case management consult. Thank you, please call with questions or concerns. Evaluation and treatment of this patient was during the time of the national and state emergency arising from COVID19 coronavirus pandemic. Treatment and procedures performed meet the current and available best practice and guidelines for patient during the COVID pandemic.
[2019-08-03] MEDS ORDERED: ePHEDrine SULFATE 50 MG/1 ML INJ ONE (10:41)
[2019-08-03] MEDS ORDERED: ROCURONIUM 50 MG/5 ML INJ IV ONE (10:44)
[2019-08-03] MEDS ORDERED: GLYCOPYRROLATE 0.4 MG/2 ML INJ ONE (10:44)
[2019-08-03] MEDS ORDERED: fentaNYL 100 MCG/2 ML INJ ONE ×2 (10:44→11:44)
[2019-08-03] MEDS ORDERED: LIDOCAINE MPF (2%) 20 MG/1 ML VIAL 5 ML ONE (10:44)
[2019-08-03] MEDS ORDERED: NEOSTIGMINE 10MG/10 ML INJ MDV ONE (10:44)
[2019-08-03] MEDS ORDERED: SUCCINYLCHOLINE CHLORIDE 200 MG/10 ML INJ MDV ONE (10:44)
[2019-08-03] MEDS ORDERED: ONDANSETRON 4 MG/2 ML INJ ONE (10:44)
[2019-08-03] MEDS ORDERED: PHENYLEPHRINE/NS 1,000 MCG/10 ML SYRINGE (OR USE) IV ONE (10:44)
[2019-08-03] MEDS ORDERED: propofoL 200 MG/20 ML VIAL IV ONE (10:45)
[2019-08-03] MEDS ORDERED: HYDROmorphone 1 MG/1 ML INJ IV PRN (10:46)
[2019-08-03] MEDS ORDERED: SODIUM CHLORIDE 0.9% 1000 ML 1,000 ML IV SCH (11:30)
[2019-08-03] MEDS ORDERED: HYDROmorphone 1 MG/1 ML INJ ONE (11:55)
[2019-08-03] MEDS ORDERED: SODIUM HYPOCHLORITE, DAKIN'S 1/2 STRENGTH (0.25%) 473 ML TOPICAL SOLN ONE (12:19)
[2019-08-03] MEDS ORDERED: SODIUM CHLORIDE 0.9% IRRIG SOLN 3000 ML IR ONE (12:24)
[2019-08-03] MEDS ORDERED: SODIUM CHLORIDE 0.9% IRR 1,500 ML BOTTLE IR ONE (12:24)
--- NOTE | 2019-08-03 12:53 | Progress Note ---
Assessment and Plan Assessment and plan: Perirectal abscess. Surgery consulted. Follow-up culture and sensitivity. IV antibiotics. ID consultation. Sepsis. Present on admission. Etiology secondary to above. Patient meets criteria given the fever, leukocytosis and diagnosis of abscess. Leukocytosis. Etiology secondary to above. Continue to follow CBC. Diabetes mellitus type 2. Continue Accu-Cheks and sliding scale insulin. Tight glycemic control to promote wound healing. Hypertension. Resume antihypertensive medications. Hypokalemia. Replete potassium. History Interval history: No new issues overnight. Hospitalist Physical - Constitutional Vitals: Temp Pulse Resp BP Pulse Ox 101.1 F H 99 H 16 119/51 99 08/03/19 11:00 08/03/19 11:00 08/03/19 11:00 08/03/19 11:00 08/03/19 11:00 General appearance: Present: no acute distress, well-nourished - EENT Eyes: Present: PERRL, EOM intact ENT: hearing intact, clear oral mucosa, dentition normal - Neck Neck: Present: supple, normal ROM - Respiratory Respiratory effort: normal Respiratory: bilateral: CTA - Cardiovascular Rhythm: regular Heart Sounds: Present: S1 & S2. Absent: gallop, rub - Extremities Extremities: no ischemia, No edema, Full ROM - Abdominal General gastrointestinal: soft, non-tender, non-distended, normal bowel sounds - Integumentary Integumentary: Present: clear, warm, dry - Neurologic Neurologic: CNII-XII intact, moves all extremities HEART Score - HEART Score EKG: Normal Age: < 45 Risk factors: 1-2 risk factors Results - Labs CBC & Chem 7: 08/03/19 00:21 08/03/19 00:21 Labs: Laboratory Last Values WBC 38.5 K/mm3 (4.5-11.0) H 08/03/19 00:21 RBC 3.82 M/mm3 (3.65-5.03) 08/03/19 00:21 Hgb 8.7 gm/dl (10.1-14.3) L 08/03/19 00:21 Hct 27.1 % (30.3-42.9) L 08/03/19 00:21 MCV 71 fl (79-97) L 08/03/19 00:21 MCH 23 pg (28-32) L 08/03/19 00:21 MCHC 32 % (30-34) 08/03/19 00:21 RDW 18.3 % (13.2-15.2) H 08/03/19 00:21 Plt Count 169 K/mm3 (140-440) 08/03/19 00:21 Add Manual Diff Complete 08/03/19 00:21 Total Counted 100 08/03/19 00:21 Seg Neutrophils % Fur Floor Worker 08/03/19 00:21 Seg Neuts % (Manual) 69.0 % (40.0-70.0) 08/03/19 00:21 Band Neutrophils % 26.0 % 08/03/19 00:21 Lymphocytes % (Manual) 2.0 % (13.4-35.0) L 08/03/19 00:21 Reactive Lymphs % (Man) 0 % 08/03/19 00:21 Monocytes % (Manual) 3.0 % (0.0-7.3) 08/03/19 00:21 Eosinophils % (Manual) 0 % (0.0-4.3) 08/03/19 00:21 Basophils % (Manual) 0 % (0.0-1.8) 08/03/19 00:21 Metamyelocytes % 0 % 08/03/19 00:21 Myelocytes % 0 % 08/03/19 00:21 Promyelocytes % 0 % 08/03/19 00:21 Blast Cells % 0 % 08/03/19 00:21 Nucleated RBC % Not Reportable 08/03/19 00:21 Seg Neutrophils # Man 26.6 K/mm3 (1.8-7.7) H 08/03/19 00:21 Band Neutrophils # 10.0 K/mm3 08/03/19 00:21 Lymphocytes # (Manual) 0.8 K/mm3 (1.2-5.4) L 08/03/19 00:21 Abs React Lymphs (Man) 0.0 K/mm3 08/03/19 00:21 Monocytes # (Manual) 1.2 K/mm3 (0.0-0.8) H 08/03/19 00:21 Eosinophils # (Manual) 0.0 K/mm3 (0.0-0.4) 08/03/19 00:21 Basophils # (Manual) 0.0 K/mm3 (0.0-0.1) 08/03/19 00:21 Metamyelocytes # 0.0 K/mm3 08/03/19 00:21 Myelocytes # 0.0 K/mm3 08/03/19 00:21 Promyelocytes # 0.0 K/mm3 08/03/19 00:21 Blast Cells # 0.0 K/mm3 08/03/19 00:21 WBC Morphology Not Reportable 08/03/19 00:21 Hypersegmented Neuts Not Reportable 08/03/19 00:21 Hyposegmented Neuts Not Reportable 08/03/19 00:21 Hypogranular Neuts Not Reportable 08/03/19 00:21 Smudge Cells Not Reportable 08/03/19 00:21 Toxic Granulation Not Reportable 08/03/19 00:21 Toxic Vacuolation Not Reportable 08/03/19 00:21 Dohle Bodies Not Reportable 08/03/19 00:21 Pelger-Huet Anomaly Not Reportable 08/03/19 00:21 Leann Rods Not Reportable 08/03/19 00:21 Platelet Estimate Cons 08/03/19 00:21 Clumped Platelets Not Reportable 08/03/19 00:21 Plt Clumps, EDTA Not Reportable 08/03/19 00:21 Large Platelets Few 08/03/19 00:21 Giant Platelets Not Reportable 08/03/19 00:21 Platelet Satelliting Not Reportable 08/03/19 00:21 Plt Morphology Comment Not Reportable 08/03/19 00:21 RBC Morphology Not Reportable 08/03/19 00:21 Dimorphic RBCs Not Reportable 08/03/19 00:21 Polychromasia Not Reportable 08/03/19 00:21 Hypochromasia 1+ 08/03/19 00:21 Poikilocytosis Not Reportable 08/03/19 00:21 Anisocytosis Not Reportable 08/03/19 00:21 Microcytosis Not Reportable 08/03/19 00:21 Macrocytosis Not Reportable 08/03/19 00:21 Spherocytes Not Reportable 08/03/19 00:21 Pappenheimer Bodies Not Reportable 08/03/19 00:21 Sickle Cells Not Reportable 08/03/19 00:21 Target Cells Not Reportable 08/03/19 00:21 Tear Drop Cells Not Reportable 08/03/19 00:21 Ovalocytes Rare 08/03/19 00:21 Helmet Cells Not Reportable 08/03/19 00:21 [place] Bodies Not Reportable 08/03/19 00:21 Stebbins Rings Not Reportable 08/03/19 00:21 [place] Cells Few 08/03/19 00:21 Bite Cells Not Reportable 08/03/19 00:21 Crenated Cell Not Reportable 08/03/19 00:21 Elliptocytes Rare 08/03/19 00:21 Acanthocytes (Spur) Not Reportable 08/03/19 00:21 Rouleaux Not Reportable 08/03/19 00:21 Hemoglobin C Crystals Not Reportable 08/03/19 00:21 Schistocytes Not Reportable 08/03/19 00:21 Malaria parasites Not Reportable 08/03/19 00:21 Josh Bodies Not Reportable 08/03/19 00:21 Hem Pathologist Commnt No 08/03/19 00:21 Sodium 135 mmol/L (137-145) L 08/03/19 00:21 Potassium 3.3 mmol/L (3.6-5.0) L 08/03/19 00:21 Chloride 95.8 mmol/L (98-107) L 08/03/19 00:21 Carbon Dioxide 23 mmol/L (22-30) 08/03/19 00:21 Anion Gap 20 mmol/L 08/03/19 00:21 BUN 19 mg/dL (7-17) H 08/03/19 00:21 Creatinine 1.2 mg/dL (0.7-1.2) 08/03/19 00:21 Estimated GFR > 60 ml/min 08/03/19 00:21 BUN/Creatinine Ratio 16 % 08/03/19 00:21 Glucose 322 mg/dL (65-100) H 08/03/19 00:21 POC Glucose 210 (70-105) H 08/03/19 11:17 Hemoglobin A1c 8.9 % (4-6) H 08/03/19 00:21 Lactic Acid 1.70 mmol/L (0.7-2.0) 08/03/19 01:46 Calcium 8.8 mg/dL (8.4-10.2) 08/03/19 00:21 HCG, Qual Negative (Negative) 08/03/19 00:21 Microbiology: Microbiology 08/03/19 02:33 Peripheral/Venous Blood Culture - Preliminary Culture in Progress 08/03/19 01:46 Peripheral/Venous Blood Culture - Preliminary Culture in Progress Lawson/IV: Voiding Method Toilet IV Catheter Type [Left INT / Saline Lock Antecubital] Active Medications - Current Medications Current Medications: Generic Name Dose Route Start Last Admin Trade Name Freq PRN Reason Stop Dose Admin Acetaminophen 650 mg 08/03/19 03:58 Tylenol PO Q4H PRN Pain MILD(1-3)/Fever >100.5/MCKEON Dextrose 0 ml 08/03/19 03:58 D50w (25gm) Syringe IV Q30MIN PRN Hypoglycemia Protocol Hydromorphone HCl 0.5 mg 08/03/19 10:46 Dilaudid IV Q10MIN PRN Pain , Severe (7-10) Sodium Chloride 1,000 mls @ 125 mls/hr 08/03/19 04:00 08/03/19 06:02 Nacl 0.9% 1000 Ml IV 125 mls/hr DIRECT LUIS Administration Piperacillin Sod/Tazobactam Sod 4.5 gm in 100 mls @ 200 mls/hr 08/03/19 06:00 08/03/19 07:21 Zosyn/Ns 4.5gm/100ml IV Infused Q8HR LUIS Infusion Protocol Metronidazole 500 mg in 100 mls @ 100 mls/hr 08/03/19 06:00 08/03/19 07:21 Flagyl 500 Mg/100 Ml IV Infused Q8HR LUIS Infusion Protocol Sodium Chloride 1,000 mls @ 42 mls/hr 08/03/19 11:30 08/03/19 11:05 Nacl 0.9% 1000 Ml IV 42 mls/hr DIRECT LUIS Administration Insulin Human Lispro 0 unit 08/03/19 07:30 08/03/19 08:54 Humalog SUB-Q 6 unit ACHS LUIS Administration Protocol Morphine Sulfate 2 mg 08/03/19 03:58 08/03/19 05:50 Morphine IV 2 mg Q4H PRN Administration Pain, Moderate (4-6) Ondansetron HCl 4 mg 08/03/19 03:58 Zofran IV Q8H PRN Nausea And Vomiting Ondansetron HCl 4 mg 08/03/19 10:46 Zofran IV 08/03/19 23:59 ONCE PRN Nausea And Vomiting Sodium Chloride 10 ml 08/03/19 10:00 Sodium Chloride Flush Syringe 10 Ml IV BID LUIS Sodium Chloride 10 ml 08/03/19 03:58 Sodium Chloride Flush Syringe 10 Ml IV PRN PRN LINE FLUSH
--- NOTE | 2019-08-03 13:06 | Post Operative Note ---
Pre-op diagnosis: necrotizing fasciitis buttocks Post-op diagnosis: same Findings: Extensive necrotizing fasciitis of right buttock and portion of left buttock. Undermining circumfrentially on right. Wounds 2-3 cm from anus. Left side: 4cm x 2.5cm x 2cm R side: 13cm x 7cm x 5cm Procedure: Excisional debridement of necrotizing fasciitis bilateral buttocks Anesthesia: GETA, local Surgeon: MYRA CONTRERAS Estimated blood loss: 50-100ml Pathology: list (wound cultures) Specimen disposition: to lab Condition: stable Disposition: PACU
--- NOTE | 2019-08-03 14:02 | Post Anesthesia Evaluation ---
- Post Anesthesia Evaluation Patient Participated: Yes Airway Patent: Yes Stable Respiratory Function: Yes Nausea/Vomiting: No Temp > 96.8F: Yes Pain Manageable: Yes Adequeate Hydration: Yes Anesthesia Complications: No Other Comments: On initial arrival to PACU, patient complained of inability to move legs and stated that she felt like "cement was in her body." However, b/l LE strength was normal and patient was moving all extremities without difficulty. Reassured patient that she was likely exeriencing residual sedative effects of GA and that her exam was normal. Symptoms resolved as patient became more awake.
[2019-08-03] MEDS ORDERED: SODIUM CHLORIDE 0.9% 1000 ML 500 ML IV ONE (15:08)
--- NOTE | 2019-08-03 16:44 | Consultation ---
History of Present Illness - Reason for Consult Consult date: 08/03/19 nec fascitis Requesting physician: MYRA CONTRERAS - History of Present Illness 39 years old female with history of asthma, diabetes type 2, left CVA x2, admitted on 08/02/2019 due to severe right buttocks pain. She initially felt a boil on 07/30/2019. She squeezed with her fingers initially. Boil became bigger and spread to both buttocks. She also noticed some drainage. She reports some nausea, vomiting and subjective fever. On arrival, her temperature was 98.1, 101.1, HR 114, RR 18, O2 sat 96, BP 113/56. Initial WBC 38.5. Hemoglobin 8.7. Platelets 169. Creatinine 1.2. A1c 8.9. Glucose 332. Blood culture 08/03/[address] pelvis shows bilateral perineal abscesses with multiple righ sided pelvic masses. Patient was taken to the operating room on 08/03/2019, underwent right buttocks and portion of left buttocks large debridement due to necrotizing fasciitis. Review of Systems: positive in bold print General: fever, chills, malaise Cutaneous: right buttocks boil, edema Head: headaches or injury Eyes: changes in vision, eye pain, double vision Ears: ear pain, ear discharge, ringing or hearing loss Nose: nose bleeding, stuffiness Mouth & throat: bleeding gums, horseness, no dental problems, or swollen glands Neck: no pain, node enlargement/lumps, tyroid enlargement or tenderness Respiratory: SOB, cough, ZAMORA, wheezing, sputum, hemoptysis, pleuritic chest pain Cardiovascular: chest pain, leg edema, cyanosis, ZAMORA, orthopnea Musculoskeletal: edema, deformities, pain Gastrointestinal: nausea, vomiting, hematemesis, diarrhea, constipation, melena, bright red blood in stools, fecal incontinence, jaundice Genitourinary/Reproductive: frequent urination, dysuria, hematuria, incontinence Neurogical: seizures, headaches, weakness, paresthesias, loss of speech or vision; memory loss, vertigo, tremors, numbness Psychiatric: stable mood; excessive anxiety, sadness or moodiness Past History Past Medical History: diabetes, hypertension, stroke, other (TIA, Asthma) Past Surgical History: No surgical history Social history: single, Lives alone, smoking (1 pack per 2-3 days, daily marijuana use), other (social ETOH use) Family history: hypertension, other (COPD, CHF, asthma) Medications and Allergies Allergies Allergy/AdvReac Type Severity Reaction Status Date / Time aspirin Allergy Unknown Unknown Verified 12/28/16 11:41 Home Medications Medication Instructions Recorded Confirmed Last Taken Type AtorvaSTATin [Lipitor] 40 mg PO QHS #30 tablet 02/16/17 Unknown Rx Clopidogrel [Plavix] 75 mg PO QDAY #30 tablet 02/16/17 Unknown Rx Metformin HCl [metFORMIN] 1,000 mg PO BID #60 tablet 02/16/17 02/16/17 Unknown Rx amLODIPine 10 mg PO DAILY #30 tab 02/16/17 Unknown Rx glipiZIDE [glipiZIDE ER] 5 mg PO DAILY 60 Days #30 tab.er.24 02/16/17 Unknown Rx Active Meds: Active Medications Acetaminophen (Tylenol) 650 mg PO Q4H PRN PRN Reason: Pain MILD(1-3)/Fever >100.5/MCKEON Last Admin: 08/03/19 14:32 Dose: 650 mg Documented by: Dextrose (D50w (25gm) Syringe) 0 ml IV Q30MIN PRN; Protocol PRN Reason: Hypoglycemia Hydromorphone HCl (Dilaudid) 0.5 mg IV Q10MIN PRN PRN Reason: Pain , Severe (7-10) Hydromorphone HCl (Dilaudid) 1 mg IV Q3H PRN PRN Reason: Pain , Severe (7-10) Sodium Chloride (Nacl 0.9% 1000 Ml) 1,000 mls @ 125 mls/hr IV DIRECT LUIS Last Admin: 08/03/19 14:40 Dose: 125 mls/hr Documented by: Piperacillin Sod/Tazobactam Sod (Zosyn/Ns 4.5gm/100ml) 4.5 gm in 100 mls @ 200 mls/hr IV Q8HR LUIS; Protocol Last Admin: 08/03/19 16:30 Dose: 200 mls/hr Documented by: Metronidazole (Flagyl 500 Mg/100 Ml) 500 mg in 100 mls @ 100 mls/hr IV Q8HR LUIS; Protocol Last Admin: 08/03/19 14:34 Dose: 100 mls/hr Documented by: Sodium Chloride (Nacl 0.9% 1000 Ml) 1,000 mls @ 42 mls/hr IV DIRECT [facility] Last Admin: 08/03/19 11:05 Dose: 42 mls/hr Documented by: Insulin Human Lispro (Humalog) 0 unit SUB-Q ACHS [facility]; Protocol Last Admin: 08/03/19 08:54 Dose: 6 unit Documented by: Morphine Sulfate (Morphine) 2 mg IV Q4H PRN PRN Reason: Pain, Moderate (4-6) Last Admin: 08/03/19 05:50 Dose: 2 mg Documented by: Ondansetron HCl (Zofran) 4 mg IV Q8H PRN PRN Reason: Nausea And Vomiting Ondansetron HCl (Zofran) 4 mg IV ONCE PRN PRN Reason: Nausea And Vomiting Stop: 08/03/19 23:59 Sodium Chloride (Sodium Chloride Flush Syringe 10 Ml) 10 ml IV BID [facility] Last Admin: 08/03/19 14:36 Dose: 10 ml Documented by: Sodium Chloride (Sodium Chloride Flush Syringe 10 Ml) 10 ml IV PRN PRN PRN Reason: LINE FLUSH Sodium Hypochlorite (Dakin's Half Strength) 1 applic TP Q12H PRN PRN Reason: Wound Care Physical Examination - Physical Exam Narrative exam: General appearance: Alert in NAD on NC O2 Eyes: anicteric sclerae, moist conjunctivae; no lid-lag; PERRLA HENT: Atraumatic; oropharynx clear partiale dentulous Lungs: CTA, with normal respiratory effort and no intercostal retractions CV: RRR no murmur Abdomen: Soft, non-tender; no masses or hepatosplenomegaly Extremities: no edema, no cyanosis Skin: Jimmy buttocks surgical dressings Psych: Appropriate affect, alert and oriented to person, place and time. Neuro: alert and oriented x 3. Moving all extermities - Constitutional Vitals: Vital Signs Temp Pulse Resp BP Pulse Ox 97.8 F 77 17 93/47 98 08/03/19 12:53 08/03/19 15:00 08/03/19 15:00 08/03/19 15:00 08/03/19 13:08 Temperature -Last 24 Hours Temperature 97.8 F Temperature 101.1 F Temperature 101.1 F Temperature 99.0 F Temperature 99.3 F Temperature 98.6 F Temperature 98.7 F Temperature 98.1 F Results - Labs CBC & Chem 7: 08/03/19 00:21 08/03/19 00:21 Labs: Abnormal lab results 08/03/19 08/03/19 08/03/19 Range/Units 00:21 00:21 00:21 WBC 38.5 H (4.5-11.0) K/mm3 Hgb 8.7 L (10.1-14.3) gm/dl Hct 27.1 L (30.3-42.9) % MCV 71 L (79-97) fl MCH 23 L (28-32) pg RDW 18.3 H (13.2-15.2) % Lymphocytes % (Manual) 2.0 L (13.4-35.0) % Seg Neutrophils # Man 26.6 H (1.8-7.7) K/mm3 Lymphocytes # (Manual) 0.8 L (1.2-5.4) K/mm3 Monocytes # (Manual) 1.2 H (0.0-0.8) K/mm3 Sodium 135 L (137-145) mmol/L Potassium 3.3 L (3.6-5.0) mmol/L Chloride 95.8 L (98-107) mmol/L BUN 19 H (7-17) mg/dL Glucose 322 H (65-100) mg/dL POC Glucose (70-105) Hemoglobin A1c 8.9 H (4-6) % 08/03/19 08/03/19 08/03/19 Range/Units 07:42 10:09 11:17 WBC (4.5-11.0) K/mm3 Hgb (10.1-14.3) gm/dl Hct (30.3-42.9) % MCV (79-97) fl MCH (28-32) pg RDW (13.2-15.2) % Lymphocytes % (Manual) (13.4-35.0) % Seg Neutrophils # Man (1.8-7.7) K/mm3 Lymphocytes # (Manual) (1.2-5.4) K/mm3 Monocytes # (Manual) (0.0-0.8) K/mm3 Sodium (137-145) mmol/L Potassium (3.6-5.0) mmol/L Chloride (98-107) mmol/L BUN (7-17) mg/dL Glucose (65-100) mg/dL POC Glucose 307 H 288 H 210 H (70-105) Hemoglobin A1c (4-6) % 08/03/19 Range/Units 13:20 WBC (4.5-11.0) K/mm3 Hgb (10.1-14.3) gm/dl Hct (30.3-42.9) % MCV (79-97) fl MCH (28-32) pg RDW (13.2-15.2) % Lymphocytes % (Manual) (13.4-35.0) % Seg Neutrophils # Man (1.8-7.7) K/mm3 Lymphocytes # (Manual) (1.2-5.4) K/mm3 Monocytes # (Manual) (0.0-0.8) K/mm3 Sodium (137-145) mmol/L Potassium (3.6-5.0) mmol/L Chloride (98-107) mmol/L BUN (7-17) mg/dL Glucose (65-100) mg/dL POC Glucose 195 H (70-105) Hemoglobin A1c (4-6) % Assessment and Plan Cultures: Blood culture 08/03/2019 no growth today. Assessment: 39 years old female with history of asthma, diabetes type 2, left CVA x2, admitted on 08/02/2019 due to severe right buttocks pain: #Severe sepsis: Present on admission with tachycardia, fever, elevated leukocytosis and elevated creat; likely due to necrotizing fasciitis of the right and left buttocks #Right and left buttocks necrotizing fasciitis: Unclear etiology, so far blood cultures are negative. Underwent extensive debridement. #Anemia #Uncontrolled diabetes: A1c 8.9. Glucose 332. Recommendations: Start clindamycin 600 g IV every 8 hours Start vancomycin with PK consult, keep vancomycin 10-20. Continue Zosyn IV for now Will adjust antibiotics soon once culture data available Follow-up blood cultures and wound cultures Will follow. Yesenia Baker MD Infectious Diseases Senior Telecommunications Specialist [facility] ([facility] M [phone] O [phone]
[2019-08-03] MEDS ORDERED: VANCOMYCIN/NS 1 GM/250 ML 1 GM/250 ML BAG IV SCH (17:00)
[2019-08-03] MEDS ORDERED: VANCOMYCIN 1,750 MG in SODIUM CHLORIDE 0.9% 500 ML 500 ML IV ONE (17:30)
--- NOTE | 2019-08-03 21:40 | Operative Report ---
Operative Report Operative Report: Date: 08/03/19 13:03 Pre-op diagnosis: necrotizing fasciitis buttocks Post-op diagnosis: same Findings: Extensive necrotizing fasciitis of right buttock and portion of left buttock. Undermining circumfrentially on right. Wounds 2-3 cm from anus. Left side: 4cm x 2.5cm x 2cm R side: 13cm x 7cm x 5cm Procedure: Excisional debridement of necrotizing fasciitis bilateral buttocks Anesthesia: TAYA, local Surgeon: MYRA CONTRERAS Estimated blood loss: 50-100ml Pathology: list (wound cultures) Specimen disposition: to lab Condition: stable Disposition: PACU HPI and indication: Pt is a 39 yo F with hx of DM who presented to ER with severe pain and swelling of her right buttock which she noticed 5 days prior. She was admitted to the hospitalist service for buttock abscess. Surgical evaluation was requested and on exam the patient was noted to have erythema, necrosis of skin, and fluctuance consistent with necrotizing fasciitis. CT scan pelvis was reviewed and showed subcutaneous air in the buttock. Recommendation was made for emergent incision, drainage, debridement of necrotizing fasciitis of buttocks/perineum and consent obtained from patient. All risks, benefits, alternatives to surgery were discussed. Procedure in detail: The patient was identified in the preoperative area and taken back to the operating room. Anesthesia was induced on the hospital bed and after the endotracheal tube was secured, the patient was placed on the operating room table in prone position. All bony prominences were padded appropriately. The buttocks were taped apart and the buttocks and perineum area and perirectal area were prepped and draped in usual sterile fashion. A timeout was performed. On examination there was severe erythema, fluctuance, induration of the entire right inner buttock as well as the lower portion of the left inner buttock. At the center of this erythema on the right, there was a necrotic area of skin measuring 2 cm x 1 cm. On the left there was a necrotic area of skin measuring 1 cm x 1 cm. I started by debriding the right side. The area of necrotic skin was excised using forceps and a 10 blade. Once excised, there was a copious amount of pus, enriquez necrotic subcutaneous tissue, very foul-smelling. Wound cultures were obtained. There was circumferential undermining and the wound extended deep into the gluteal subcutaneous tissue. The entire cavity was unroofed by excising more skin using a 10 blade and forceps. At this point I performed an excisional debridement of the necrotic skin and subcutaneous tissue to the fascia overlying the muscle using forceps and a curved Mariee scissors. There were multiple deep tunnels. The wound extended towards the perineum and cephalad towards the lower back. Once all of the necrotic tissue and pus was evacuated, the wound was irrigated with pulse lavage. There was oozing from the entire wound bed. Hemostasis was very carefully ensured using a combination of pressure and electrocautery. This wound measured 13 cm x 7 cm x 5 cm. The wound was then packed with 1 lap pad. I then proceeded to perform a similar debridement on the left buttock by first excising the necrotic skin using a 10 blade. Additional excisional debridement of necrotic skin and subcutaneous tissue was undertaken with forceps and Metzenbaum scissors, down to the fascia. There was generalized oozing from the healthy subcutaneous fat. The wound measured 4 cm x 2.5 cm x 2 cm. The wound was then irrigated with pulse lavage. Hemostasis was carefully ensured using a combination of pressure and electrocautery. The lap pad was then removed from the right side. The wounds were once again checked for hemostasis which was carefully ensured. Both wounds were packed with 1 piece each of Dakin's moistened Kerlix. This was covered with 4 x 4 gauze ABD pads and tape. At the end of the case, all sponge, instrument, sharp counts were correct x2. Patient was transferred to a hospital bed, awoken from anesthesia, extubated, taken to PACU in stable condition.
[2019-08-03] MEDS: CLINDAMYCIN 600 MG/50 mL 600 MG/50 ML BAG IV SCH (22:39)
[2019-08-04] MEDS: MORPHINE 2 MG/1 ML INJ IV PRN (04:13)
[2019-08-04] MEDS: CLINDAMYCIN 600 MG/50 mL 600 MG/50 ML BAG IV SCH ×4 (05:36→23:55)
[2019-08-04] MEDS: PIPERACIL/TAZOBACTA 4.5/NS 100 4.5 GM/100 ML VIAL IV SCH ×3 (05:49→23:54)
[2019-08-04] MEDS: SODIUM CHLORIDE 0.9% 1000 ML 1,000 ML IV SCH (05:53)
[2019-08-04 05:55] LABS: Hematocrit 25.9 % (30.3-42.9); Hemoglobin 7.9 gm/dl (10.1-14.3); Mean Corpuscular HGB Conc 31 % (30-34); Mean Corpuscular Volume 74 fl (79-97); Platelet Count 200 K/mm3 (140-440); Red Cell Distribution Width 19.3 % (13.2-15.2)
[2019-08-04 06:05] LABS: INR 1.16 (0.87-1.13)
[2019-08-04 06:22] LABS: Calcium 7.6 mg/dL (8.4-10.2)
[2019-08-04] MEDS: VANCOMYCIN 1,250 MG in SODIUM CHLORIDE 0.9% 250ML 250 ML IV SCH ×2 (06:30→18:09)
[2019-08-04 06:52] LABS: Band Neutrophils # (Manual) 0.7 K/mm3; Basophils % (Manual) 0 % (0.0-1.8); Eosinophils % (Manual) 0 % (0.0-4.3); Total Cells Counted 100
[2019-08-04 06:53] LABS: Anisocytosis Few; Burr Cells Few; Hypochromasia 2+
[2019-08-04 06:54] LABS: Platelet Estimate Consistent w Auto; Target Cells Few
[2019-08-04] MEDS ORDERED: SODIUM HYPOCHLORITE, DAKIN'S 1/2 STRENGTH (0.25%) 473 ML TOPICAL SOLN TP PRN (08:00)
[2019-08-04] MEDS: INSULIN LISPRO 100 UNIT/ML SUB-Q SCH ×5 (08:38→23:54)
[2019-08-04] MEDS ORDERED: INSULIN NPH/REGULAR 70/30 INJ SUB-Q ONE (08:45)
--- NOTE | 2019-08-04 10:34 | Progress Note ---
Assessment and Plan Assessment and plan: Extensive necrotizing fasciitis of right buttock and portion of left buttock.. Surgery and ID following Sepsis. Present on admission. Etiology secondary to above. Patient meets criteria given the fever, leukocytosis and diagnosis of necrotizing fasciitis Leukocytosis. Etiology secondary to above. Continue to follow CBC. Diabetes mellitus type 2. Continue Accu-Cheks and sliding scale insulin. Tight glycemic control to promote wound healing. Hypertension. Resume antihypertensive medications. Hypokalemia. Replete potassium. 08/04/2019. Patient with excisional debridement of necrotizing fasciitis of bilateral buttocks completed on 08/03/2019. Continue clindamycin, Zosyn and vancomycin per ID recommendations. Follow-up blood cultures and wound cultures. Continue wound care. Patient with elevated BG in the 350s. We will start Lantus at bedtime 10 units. 70/30 insulin 10 units x 1 now. History Interval history: No new issues overnight. Hospitalist Physical - Constitutional Vitals: Temp Pulse Resp BP Pulse Ox 97.5 F L 78 13 133/71 100 08/04/19 08:00 08/04/19 09:00 08/04/19 09:00 08/04/19 09:00 08/04/19 09:00 General appearance: Present: no acute distress, well-nourished - EENT Eyes: Present: PERRL, EOM intact ENT: hearing intact, clear oral mucosa, dentition normal - Neck Neck: Present: supple, normal ROM - Respiratory Respiratory effort: normal Respiratory: bilateral: CTA - Cardiovascular Rhythm: regular Heart Sounds: Present: S1 & S2. Absent: gallop, rub - Extremities Extremities: no ischemia, No edema, Full ROM - Abdominal General gastrointestinal: soft, non-tender, non-distended, normal bowel sounds - Integumentary Integumentary: Present: clear, warm, dry - Neurologic Neurologic: CNII-XII intact, moves all extremities HEART Score - HEART Score EKG: Normal Age: < 45 Risk factors: 1-2 risk factors Results - Labs CBC & Chem 7: 08/04/19 05:30 08/04/19 05:30 Labs: Laboratory Last Values WBC 36.8 K/mm3 (4.5-11.0) H 08/04/19 05:30 RBC 3.50 M/mm3 (3.65-5.03) L 08/04/19 05:30 Hgb 7.9 gm/dl (10.1-14.3) L 08/04/19 05:30 Hct 25.9 % (30.3-42.9) L 08/04/19 05:30 MCV 74 fl (79-97) L 08/04/19 05:30 MCH 23 pg (28-32) L 08/04/19 05:30 MCHC 31 % (30-34) 08/04/19 05:30 RDW 19.3 % (13.2-15.2) H 08/04/19 05:30 Plt Count 200 K/mm3 (140-440) 08/04/19 05:30 Add Manual Diff Complete 08/04/19 05:30 Total Counted 100 08/04/19 05:30 Seg Neutrophils % Chief Scientific Officer 08/03/19 00:21 Seg Neuts % (Manual) 84.0 % (40.0-70.0) H 08/04/19 05:30 Band Neutrophils % 2.0 % 08/04/19 05:30 Lymphocytes % (Manual) 11.0 % (13.4-35.0) L 08/04/19 05:30 Reactive Lymphs % (Man) 0 % 08/04/19 05:30 Monocytes % (Manual) 3.0 % (0.0-7.3) 08/04/19 05:30 Eosinophils % (Manual) 0 % (0.0-4.3) 08/04/19 05:30 Basophils % (Manual) 0 % (0.0-1.8) 08/04/19 05:30 Metamyelocytes % 0 % 08/04/19 05:30 Myelocytes % 0 % 08/04/19 05:30 Promyelocytes % 0 % 08/04/19 05:30 Blast Cells % 0 % 08/04/19 05:30 Nucleated RBC % Not Reportable 08/04/19 05:30 Seg Neutrophils # Man 30.9 K/mm3 (1.8-7.7) H 08/04/19 05:30 Band Neutrophils # 0.7 K/mm3 08/04/19 05:30 Lymphocytes # (Manual) 4.0 K/mm3 (1.2-5.4) 08/04/19 05:30 Abs React Lymphs (Man) 0.0 K/mm3 08/04/19 05:30 Monocytes # (Manual) 1.1 K/mm3 (0.0-0.8) H 08/04/19 05:30 Eosinophils # (Manual) 0.0 K/mm3 (0.0-0.4) 08/04/19 05:30 Basophils # (Manual) 0.0 K/mm3 (0.0-0.1) 08/04/19 05:30 Metamyelocytes # 0.0 K/mm3 08/04/19 05:30 Myelocytes # 0.0 K/mm3 08/04/19 05:30 Promyelocytes # 0.0 K/mm3 08/04/19 05:30 Blast Cells # 0.0 K/mm3 08/04/19 05:30 WBC Morphology Not Reportable 08/04/19 05:30 Hypersegmented Neuts Not Reportable 08/04/19 05:30 Hyposegmented Neuts Not Reportable 08/04/19 05:30 Hypogranular Neuts Not Reportable 08/04/19 05:30 Smudge Cells Not Reportable 08/04/19 05:30 Toxic Granulation Not Reportable 08/04/19 05:30 Toxic Vacuolation Not Reportable 08/04/19 05:30 Dohle Bodies Not Reportable 08/04/19 05:30 Pelger-Huet Anomaly Not Reportable 08/04/19 05:30 Lenan Rods Not Reportable 08/04/19 05:30 Platelet Estimate Consistent w auto 08/04/19 05:30 Clumped Platelets Not Reportable 08/04/19 05:30 Plt Clumps, EDTA Not Reportable 08/04/19 05:30 Large Platelets Not Reportable 08/04/19 05:30 Giant Platelets Not Reportable 08/04/19 05:30 Platelet Satelliting Not Reportable 08/04/19 05:30 Plt Morphology Comment Not Reportable 08/04/19 05:30 RBC Morphology Not Reportable 08/04/19 05:30 Dimorphic RBCs Not Reportable 08/04/19 05:30 Polychromasia Not Reportable 08/04/19 05:30 Hypochromasia 2+ 08/04/19 05:30 Poikilocytosis Not Reportable 08/04/19 05:30 Anisocytosis Few 08/04/19 05:30 Microcytosis Few 08/04/19 05:30 Macrocytosis Not Reportable 08/04/19 05:30 Spherocytes Not Reportable 08/04/19 05:30 Pappenheimer Bodies Not Reportable 08/04/19 05:30 Sickle Cells Not Reportable 08/04/19 05:30 Target Cells Few 08/04/19 05:30 Tear Drop Cells Not Reportable 08/04/19 05:30 Ovalocytes Not Reportable 08/04/19 05:30 Helmet Cells Not Reportable 08/04/19 05:30 [place] Bodies Not Reportable 08/04/19 05:30 [place] Rings Not Reportable 08/04/19 05:30 Marylu Cells Few 08/04/19 05:30 Bite Cells Not Reportable 08/04/19 05:30 Crenated Cell Not Reportable 08/04/19 05:30 Elliptocytes Not Reportable 08/04/19 05:30 Acanthocytes (Spur) Not Reportable 08/04/19 05:30 Rouleaux Not Reportable 08/04/19 05:30 Hemoglobin C Crystals Not Reportable 08/04/19 05:30 Schistocytes Not Reportable 08/04/19 05:30 Malaria parasites Not Reportable 08/04/19 05:30 Johs Bodies Not Reportable 08/04/19 05:30 Hem Pathologist Commnt No 08/04/19 05:30 PT 14.9 Sec. (12.2-14.9) 08/04/19 05:30 INR 1.16 (0.87-1.13) H 08/04/19 05:30 Sodium 131 mmol/L (137-145) L 08/04/19 05:30 Potassium 4.5 mmol/L (3.6-5.0) D 08/04/19 05:30 Chloride 101.8 mmol/L (98-107) 08/04/19 05:30 Carbon Dioxide 14 mmol/L (22-30) L D 08/04/19 05:30 Anion Gap 20 mmol/L 08/04/19 05:30 BUN 30 mg/dL (7-17) H 08/04/19 05:30 Creatinine 1.3 mg/dL (0.7-1.2) H 08/04/19 05:30 Estimated GFR 55 ml/min 08/04/19 05:30 BUN/Creatinine Ratio 23 % 08/04/19 05:30 Glucose 398 mg/dL (65-100) H 08/04/19 05:30 POC Glucose 461 (70-105) H 08/04/19 08:40 Hemoglobin A1c 8.9 % (4-6) H 08/03/19 00:21 Lactic Acid 1.70 mmol/L (0.7-2.0) 08/03/19 01:46 Calcium 7.6 mg/dL (8.4-10.2) L 08/04/19 05:30 HCG, Qual Negative (Negative) 08/03/19 00:21 Microbiology: Microbiology 08/03/19 02:33 Peripheral/Venous Blood Culture - Preliminary NO GROWTH AFTER 24 HOURS 08/03/19 01:46 Peripheral/Venous Blood Culture - Preliminary NO GROWTH AFTER 24 HOURS Lawson/IV: Voiding Method Toilet IV Catheter Type [Left INT / Saline Lock Antecubital] Active Medications - Current Medications Current Medications: Generic Name Dose Route Start Last Admin Trade Name Freq PRN Reason Stop Dose Admin Acetaminophen 650 mg 08/03/19 03:58 08/03/19 14:32 Tylenol PO 650 mg Q4H PRN Administration Pain MILD(1-3)/Fever >100.5/MCKEON Dextrose 0 ml 08/03/19 03:58 D50w (25gm) Syringe IV Q30MIN PRN Hypoglycemia Protocol Hydromorphone HCl 0.5 mg 08/03/19 10:46 Dilaudid IV Q10MIN PRN Pain , Severe (7-10) Hydromorphone HCl 1 mg 08/03/19 13:06 Dilaudid IV Q3H PRN Pain , Severe (7-10) Sodium Chloride 1,000 mls @ 125 mls/hr 08/03/19 04:00 08/04/19 05:53 Nacl 0.9% 1000 Ml IV 125 mls/hr DIRECT LUIS Administration Piperacillin Sod/Tazobactam Sod 4.5 gm in 100 mls @ 200 mls/hr 08/03/19 06:00 08/04/19 05:49 Zosyn/Ns 4.5gm/100ml IV 200 mls/hr Q8HR [facility] Administration Protocol Sodium Chloride 1,000 mls @ 42 mls/hr 08/03/19 11:30 08/03/19 11:05 Nacl 0.9% 1000 Ml IV 42 mls/hr DIRECT [facility] Administration Clindamycin HCl 600 mg in 50 mls @ 100 mls/hr 08/03/19 17:00 08/04/19 05:37 Cleocin 600 Mg/50 Ml IV 100 mls/hr Q8HR [facility] Administration Protocol Vancomycin HCl 1,250 mg/ 275 mls @ 166.667 mls/hr 08/04/19 06:00 08/04/19 06:30 Sodium Chloride IV 166.667 mls/hr Q12H [facility] Administration Insulin Glargine 10 units 08/04/19 22:00 Lantus SUB-Q QHS [facility] Insulin Human Lispro 0 unit 08/03/19 07:30 08/04/19 08:38 Humalog SUB-Q 8 unit ACHS [facility] Administration Protocol Morphine Sulfate 2 mg 08/03/19 03:58 08/04/19 04:13 Morphine IV 2 mg Q4H PRN Administration Pain, Moderate (4-6) Ondansetron HCl 4 mg 08/03/19 03:58 08/04/19 10:06 Zofran IV 4 mg Q8H PRN Administration Nausea And Vomiting Sodium Chloride 10 ml 08/03/19 10:00 08/04/19 10:07 Sodium Chloride Flush Syringe 10 Ml IV 10 ml BID [facility] Administration Sodium Chloride 10 ml 08/03/19 03:58 Sodium Chloride Flush Syringe 10 Ml IV PRN PRN LINE FLUSH Sodium Hypochlorite 1 applic 08/04/19 08:00 Dakin's Half Strength TP Q12H PRN Wound Care
[2019-08-04] MEDS: LORazepam 2 MG/ML VIAL IV NR ×2 (11:55→12:08)
[2019-08-04] MEDS ORDERED: METOCLOPRAMIDE 10 MG/2 ML INJ IV PRN (11:55)
[2019-08-04] MEDS: HYDROmorphone 1 MG/1 ML INJ IV PRN ×2 (11:56→12:09)
--- NOTE | 2019-08-04 11:56 | Progress Note ---
Assessment and Plan - Patient Problems (1) Necrotizing fasciitis Current Visit: Yes Status: Acute Plan to address problem: Pt stable. s/p Excisional debridement of necrotizing fasciitis bilateral buttocks - 08/02 - POD#1. Overall, patient appears to be showing signs of improvement. She has been afebrile for the past 24 hours. White count is slightly improved. She does not appear ill. Blood sugars are still not adequately controlled. Dressing changes done at the bedside. Overall, she did well with the dressing change. The left buttock was more tender. No signs of any residual purulent fluid, odor, or erythema were seen. Nurse was present at bedside during dressing change. Recommendation: 1. nursing to take over twice daily dressing changes. They have orders for premedication with Ativan and Dilaudid. This seemed to work fairly well for the patient. 2. Needs tighter blood glucose control-defer to hospitalist 3. Continue to follow labs and await results of wound cultures 4. For now, it may be best for her to stay in IMCU so that she may receive IV Ativan and Dilaudid for the dressing changes. As the wound heals, we will be able to transition over to oral medications and then she can be moved to the floor. Please call with any questions Subjective Date of service: 08/04/19 Patient Reports: Positive: no new complaints Objective Vital Signs - 12hr 08/04/19 08/04/19 08/04/19 00:00 00:02 00:10 Temperature 98.8 F Pulse Rate 96 H 92 H Pulse Rate [ 89 From Monitor] Respiratory 28 H 19 Rate Blood Pressure 102/61 108/50 O2 Sat by Pulse 95 97 Oximetry 08/04/19 08/04/19 08/04/19 00:20 00:30 00:40 Temperature Pulse Rate 83 85 85 Pulse Rate [ From Monitor] Respiratory 21 21 18 Rate Blood Pressure 108/50 102/61 102/61 O2 Sat by Pulse 99 99 99 Oximetry 08/04/19 08/04/19 08/04/19 00:50 01:00 01:10 Temperature Pulse Rate 83 83 85 Pulse Rate [ From Monitor] Respiratory 18 17 19 Rate Blood Pressure 102/61 102/61 102/61 O2 Sat by Pulse 99 100 99 Oximetry 08/04/19 08/04/19 08/04/19 01:20 01:30 01:40 Temperature Pulse Rate 86 86 87 Pulse Rate [ From Monitor] Respiratory 18 18 19 Rate Blood Pressure 102/61 102/61 102/61 O2 Sat by Pulse 99 99 99 Oximetry 08/04/19 08/04/19 08/04/19 01:50 02:00 02:10 Temperature Pulse Rate 88 87 84 Pulse Rate [ From Monitor] Respiratory 18 27 H 18 Rate Blood Pressure 102/61 102/61 130/73 O2 Sat by Pulse 99 100 99 Oximetry 08/04/19 08/04/19 08/04/19 02:20 02:30 02:40 Temperature Pulse Rate 82 82 84 Pulse Rate [ From Monitor] Respiratory 18 17 18 Rate Blood Pressure 130/73 130/73 130/73 O2 Sat by Pulse 99 98 99 Oximetry 08/04/19 08/04/19 08/04/19 02:50 03:00 03:10 Temperature Pulse Rate 84 85 82 Pulse Rate [ From Monitor] Respiratory 17 17 18 Rate Blood Pressure 130/73 130/73 52/32 O2 Sat by Pulse 98 98 98 Oximetry 08/04/19 08/04/19 08/04/19 03:20 03:30 03:40 Temperature Pulse Rate 83 86 85 Pulse Rate [ From Monitor] Respiratory 17 16 19 Rate Blood Pressure 52/32 52/32 122/69 O2 Sat by Pulse 98 99 100 Oximetry 08/04/19 08/04/19 08/04/19 03:50 04:00 04:05 Temperature 98.4 F 98.4 F Pulse Rate 82 Pulse Rate [ 83 From Monitor] Respiratory 24 Rate Blood Pressure 122/69 123/69 O2 Sat by Pulse 99 98 Oximetry 08/04/19 08/04/19 08/04/19 04:10 04:13 04:20 Temperature Pulse Rate 81 81 Pulse Rate [ From Monitor] Respiratory 22 17 27 H Rate Blood Pressure 123/69 123/69 O2 Sat by Pulse 100 100 Oximetry 08/04/19 08/04/19 08/04/19 04:30 04:40 04:50 Temperature Pulse Rate 89 84 83 Pulse Rate [ From Monitor] Respiratory 15 22 25 H Rate Blood Pressure 123/69 123/69 123/69 O2 Sat by Pulse 100 100 100 Oximetry 08/04/19 08/04/19 08/04/19 05:00 05:10 05:20 Temperature Pulse Rate 84 88 90 Pulse Rate [ From Monitor] Respiratory 17 19 16 Rate Blood Pressure 123/66 123/66 123/66 O2 Sat by Pulse 100 100 100 Oximetry 08/04/19 08/04/19 08/04/19 05:30 05:40 05:50 Temperature Pulse Rate 85 84 78 Pulse Rate [ From Monitor] Respiratory 11 L 18 21 Rate Blood Pressure 123/66 123/66 123/66 O2 Sat by Pulse 99 97 97 Oximetry 08/04/19 08/04/19 08/04/19 06:00 06:10 06:20 Temperature Pulse Rate 82 80 83 Pulse Rate [ From Monitor] Respiratory 24 19 19 Rate Blood Pressure 123/66 90/61 90/61 O2 Sat by Pulse 98 96 96 Oximetry 08/04/19 08/04/19 08/04/19 06:30 06:40 06:50 Temperature Pulse Rate 82 79 80 Pulse Rate [ From Monitor] Respiratory 18 17 18 Rate Blood Pressure 90/61 90/61 90/61 O2 Sat by Pulse 96 96 96 Oximetry 08/04/19 08/04/19 08/04/19 07:00 07:30 08:00 Temperature 97.5 F L Pulse Rate 80 77 86 Pulse Rate [ From Monitor] Respiratory 18 18 15 Rate Blood Pressure 90/61 90/61 90/61 O2 Sat by Pulse 97 100 94 Oximetry 08/04/19 08/04/19 08:30 09:00 Temperature Pulse Rate 78 Pulse Rate [ From Monitor] Respiratory 13 Rate Blood Pressure 133/71 133/71 O2 Sat by Pulse 91 100 Oximetry - General physical appearance no distress, no pain - Respiratory normal expansion, normal respiratory effort - Integumentary other (Large wound on right buttock was relatively clean. No purulent fluid seen. Minimal tenderness. Left buttock was smaller wound. Tender with removal and packing of gauze. No erythema. No foul smell) - Psychiatric oriented to time, oriented to person, oriented to place, speech is normal, memory intact - Labs 08/04/19 05:30 08/04/19 05:30 Diabetes panel 08/04/19 Range/Units 05:30 Sodium 131 L (137-145) mmol/L Potassium 4.5 D (3.6-5.0) mmol/L Chloride 101.8 (98-107) mmol/L Carbon Dioxide 14 L D (22-30) mmol/L BUN 30 H (7-17) mg/dL Creatinine 1.3 H (0.7-1.2) mg/dL Glucose 398 H (65-100) mg/dL Calcium 7.6 L (8.4-10.2) mg/dL Calcium panel 08/04/19 Range/Units 05:30 Calcium 7.6 L (8.4-10.2) mg/dL Pituitary panel 08/04/19 Range/Units 05:30 Sodium 131 L (137-145) mmol/L Potassium 4.5 D (3.6-5.0) mmol/L Chloride 101.8 (98-107) mmol/L Carbon Dioxide 14 L D (22-30) mmol/L BUN 30 H (7-17) mg/dL Creatinine 1.3 H (0.7-1.2) mg/dL Glucose 398 H (65-100) mg/dL Calcium 7.6 L (8.4-10.2) mg/dL Adrenal panel 08/04/19 Range/Units 05:30 Sodium 131 L (137-145) mmol/L Potassium 4.5 D (3.6-5.0) mmol/L Chloride 101.8 (98-107) mmol/L Carbon Dioxide 14 L D (22-30) mmol/L BUN 30 H (7-17) mg/dL Creatinine 1.3 H (0.7-1.2) mg/dL Glucose 398 H (65-100) mg/dL Calcium 7.6 L (8.4-10.2) mg/dL
[2019-08-04] MEDS ORDERED: HYDROmorphone 1 MG/1 ML INJ IV ONE (12:31)
[2019-08-04] MEDS: INSULIN GLARGINE 100 UNITS/ML SUB-Q SCH (23:19)
[2019-08-05] MEDS: CLINDAMYCIN 300 MG CAP PO SCH ×2 (00:04→05:30)
[2019-08-05] MEDS: HYDROcodone/ACETAMINOPHEN 5-325 MG TAB PO PRN ×2 (00:08→06:45)
[2019-08-05] MEDS: CLINDAMYCIN 600 MG/50 mL 600 MG/50 ML BAG IV SCH ×3 (05:28→22:10)
[2019-08-05] MEDS: PIPERACIL/TAZOBACTA 4.5/NS 100 4.5 GM/100 ML VIAL IV SCH ×3 (05:29→22:16)
[2019-08-05] MEDS: VANCOMYCIN 1,250 MG in SODIUM CHLORIDE 0.9% 250ML 250 ML IV SCH ×3 (05:39→23:31)
--- NOTE | 2019-08-05 09:59 | Progress Note ---
Assessment and Plan Assessment and plan: Extensive necrotizing fasciitis of right buttock and portion of left buttock.. Surgery and ID following Sepsis. Present on admission. Etiology secondary to above. Patient meets criteria given the fever, leukocytosis and diagnosis of necrotizing fasciitis Leukocytosis. Etiology secondary to above. Continue to follow CBC. Diabetes mellitus type 2. Continue Accu-Cheks and sliding scale insulin. Tight glycemic control to promote wound healing. Hypertension. Resume antihypertensive medications. Hypokalemia. Replete potassium. 08/04/2019. Patient with excisional debridement of necrotizing fasciitis of bilateral buttocks completed on 08/03/2019. Continue clindamycin, Zosyn and vancomycin per ID recommendations. Follow-up blood cultures and wound cultures. Continue wound care. Patient with elevated BG in the 350s. We will start Lantus at bedtime 10 units. 70/30 insulin 10 units x 1 now. 07/28/2019. Patient s/p excisional debridement of necrotizing fasciitis of bilateral buttocks. Continue antibiotics per ID recommendations. PICC line placement. Increase Lantus for better glycemic control. Follow-up wound culture results. Likely transfer to the floor History Interval history: No new issues overnight. Hospitalist Physical - Constitutional Vitals: Temp Pulse Resp BP Pulse Ox 97.5 F L 74 20 132/63 90 08/05/19 08:00 08/05/19 09:30 08/05/19 09:30 08/05/19 09:30 08/05/19 09:30 General appearance: Present: no acute distress, well-nourished - EENT Eyes: Present: PERRL, EOM intact ENT: hearing intact, clear oral mucosa, dentition normal - Neck Neck: Present: supple, normal ROM - Respiratory Respiratory effort: normal Respiratory: bilateral: CTA - Cardiovascular Rhythm: regular Heart Sounds: Present: S1 & S2. Absent: gallop, rub - Extremities Extremities: no ischemia, No edema, Full ROM - Abdominal General gastrointestinal: soft, non-tender, non-distended, normal bowel sounds - Integumentary Integumentary: Present: clear, warm, dry - Neurologic Neurologic: CNII-XII intact, moves all extremities HEART Score - HEART Score EKG: Normal Age: < 45 Risk factors: 1-2 risk factors Results - Labs CBC & Chem 7: 08/04/19 05:30 08/04/19 05:30 Labs: Laboratory Last Values WBC 36.8 K/mm3 (4.5-11.0) H 08/04/19 05:30 RBC 3.50 M/mm3 (3.65-5.03) L 08/04/19 05:30 Hgb 7.9 gm/dl (10.1-14.3) L 08/04/19 05:30 Hct 25.9 % (30.3-42.9) L 08/04/19 05:30 MCV 74 fl (79-97) L 08/04/19 05:30 MCH 23 pg (28-32) L 08/04/19 05:30 MCHC 31 % (30-34) 08/04/19 05:30 RDW 19.3 % (13.2-15.2) H 08/04/19 05:30 Plt Count 200 K/mm3 (140-440) 08/04/19 05:30 Add Manual Diff Complete 08/04/19 05:30 Total Counted 100 08/04/19 05:30 Seg Neutrophils % Cloth Washer Back Tender 08/03/19 00:21 Seg Neuts % (Manual) 84.0 % (40.0-70.0) H 08/04/19 05:30 Band Neutrophils % 2.0 % 08/04/19 05:30 Lymphocytes % (Manual) 11.0 % (13.4-35.0) L 08/04/19 05:30 Reactive Lymphs % (Man) 0 % 08/04/19 05:30 Monocytes % (Manual) 3.0 % (0.0-7.3) 08/04/19 05:30 Eosinophils % (Manual) 0 % (0.0-4.3) 08/04/19 05:30 Basophils % (Manual) 0 % (0.0-1.8) 08/04/19 05:30 Metamyelocytes % 0 % 08/04/19 05:30 Myelocytes % 0 % 08/04/19 05:30 Promyelocytes % 0 % 08/04/19 05:30 Blast Cells % 0 % 08/04/19 05:30 Nucleated RBC % Not Reportable 08/04/19 05:30 Seg Neutrophils # Man 30.9 K/mm3 (1.8-7.7) H 08/04/19 05:30 Band Neutrophils # 0.7 K/mm3 08/04/19 05:30 Lymphocytes # (Manual) 4.0 K/mm3 (1.2-5.4) 08/04/19 05:30 Abs React Lymphs (Man) 0.0 K/mm3 08/04/19 05:30 Monocytes # (Manual) 1.1 K/mm3 (0.0-0.8) H 08/04/19 05:30 Eosinophils # (Manual) 0.0 K/mm3 (0.0-0.4) 08/04/19 05:30 Basophils # (Manual) 0.0 K/mm3 (0.0-0.1) 08/04/19 05:30 Metamyelocytes # 0.0 K/mm3 08/04/19 05:30 Myelocytes # 0.0 K/mm3 08/04/19 05:30 Promyelocytes # 0.0 K/mm3 08/04/19 05:30 Blast Cells # 0.0 K/mm3 08/04/19 05:30 WBC Morphology Not Reportable 08/04/19 05:30 Hypersegmented Neuts Not Reportable 08/04/19 05:30 Hyposegmented Neuts Not Reportable 08/04/19 05:30 Hypogranular Neuts Not Reportable 08/04/19 05:30 Smudge Cells Not Reportable 08/04/19 05:30 Toxic Granulation Not Reportable 08/04/19 05:30 Toxic Vacuolation Not Reportable 08/04/19 05:30 Dohle Bodies Not Reportable 08/04/19 05:30 Pelger-Huet Anomaly Not Reportable 08/04/19 05:30 Leann Rods Not Reportable 08/04/19 05:30 Platelet Estimate Consistent w auto 08/04/19 05:30 Clumped Platelets Not Reportable 08/04/19 05:30 Plt Clumps, EDTA Not Reportable 08/04/19 05:30 Large Platelets Not Reportable 08/04/19 05:30 Giant Platelets Not Reportable 08/04/19 05:30 Platelet Satelliting Not Reportable 08/04/19 05:30 Plt Morphology Comment Not Reportable 08/04/19 05:30 RBC Morphology Not Reportable 08/04/19 05:30 Dimorphic RBCs Not Reportable 08/04/19 05:30 Polychromasia Not Reportable 08/04/19 05:30 Hypochromasia 2+ 08/04/19 05:30 Poikilocytosis Not Reportable 08/04/19 05:30 Anisocytosis Few 08/04/19 05:30 Microcytosis Few 08/04/19 05:30 Macrocytosis Not Reportable 08/04/19 05:30 Spherocytes Not Reportable 08/04/19 05:30 Pappenheimer Bodies Not Reportable 08/04/19 05:30 Sickle Cells Not Reportable 08/04/19 05:30 Target Cells Few 08/04/19 05:30 Tear Drop Cells Not Reportable 08/04/19 05:30 Ovalocytes Not Reportable 08/04/19 05:30 Helmet Cells Not Reportable 08/04/19 05:30 [place] Bodies Not Reportable 08/04/19 05:30 [place] Rings Not Reportable 08/04/19 05:30 Marylu Cells Few 08/04/19 05:30 Bite Cells Not Reportable 08/04/19 05:30 Crenated Cell Not Reportable 08/04/19 05:30 Elliptocytes Not Reportable 08/04/19 05:30 Acanthocytes (Spur) Not Reportable 08/04/19 05:30 Rouleaux Not Reportable 08/04/19 05:30 Hemoglobin C Crystals Not Reportable 08/04/19 05:30 Schistocytes Not Reportable 08/04/19 05:30 Malaria parasites Not Reportable 08/04/19 05:30 Josh Bodies Not Reportable 08/04/19 05:30 Hem Pathologist Commnt No 08/04/19 05:30 PT 14.9 Sec. (12.2-14.9) 08/04/19 05:30 INR 1.16 (0.87-1.13) H 08/04/19 05:30 Sodium 131 mmol/L (137-145) L 08/04/19 05:30 Potassium 4.5 mmol/L (3.6-5.0) D 08/04/19 05:30 Chloride 101.8 mmol/L (98-107) 08/04/19 05:30 Carbon Dioxide 14 mmol/L (22-30) L D 08/04/19 05:30 Anion Gap 20 mmol/L 08/04/19 05:30 BUN 30 mg/dL (7-17) H 08/04/19 05:30 Creatinine 1.3 mg/dL (0.7-1.2) H 08/04/19 05:30 Estimated GFR 55 ml/min 08/04/19 05:30 BUN/Creatinine Ratio 23 % 08/04/19 05:30 Glucose 398 mg/dL (65-100) H 08/04/19 05:30 POC Glucose 330 (70-105) H 08/04/19 23:23 Hemoglobin A1c 8.9 % (4-6) H 08/03/19 00:21 Lactic Acid 1.70 mmol/L (0.7-2.0) 08/03/19 01:46 Calcium 7.6 mg/dL (8.4-10.2) L 08/04/19 05:30 HCG, Qual Negative (Negative) 08/03/19 00:21 Microbiology: Microbiology 08/03/19 02:33 Peripheral/Venous Blood Culture - Preliminary NO GROWTH AFTER 48 HOURS 08/03/19 01:46 Peripheral/Venous Blood Culture - Preliminary NO GROWTH AFTER 48 HOURS 08/03/19 Unknown Buttock Surgical Culture - Preliminary Lawson/IV: Voiding Method Toilet IV Catheter Type [Left INT / Saline Lock Antecubital] Active Medications - Current Medications Current Medications: Generic Name Dose Route Start Last Admin Trade Name Freq PRN Reason Stop Dose Admin Acetaminophen 650 mg 08/03/19 03:58 08/03/19 14:32 Tylenol PO 650 mg Q4H PRN Administration Pain MILD(1-3)/Fever >100.5/MCKEON Acetaminophen/Hydrocodone Bitart 2 each 08/04/19 12:36 08/05/19 06:45 Frannie 5/325 PO 2 each Q6H PRN Administration Pain, Moderate (4-6) Dextrose 0 ml 08/03/19 03:58 D50w (25gm) Syringe IV Q30MIN PRN Hypoglycemia Protocol Hydromorphone HCl 1 mg 08/03/19 13:06 Dilaudid IV Q3H PRN Pain , Severe (7-10) Hydromorphone HCl 1 mg 08/04/19 11:30 08/04/19 12:09 Dilaudid IV 1 mg BID PRN Administration Wound Care Sodium Chloride 1,000 mls @ 125 mls/hr 08/03/19 04:00 08/04/19 05:53 Nacl 0.9% 1000 Ml IV 125 mls/hr DIRECT LUIS Administration Piperacillin Sod/Tazobactam Sod 4.5 gm in 100 mls @ 200 mls/hr 08/03/19 06:00 08/05/19 05:29 Zosyn/Ns 4.5gm/100ml IV Not Given Q8HR LUIS Protocol Sodium Chloride 1,000 mls @ 42 mls/hr 08/03/19 11:30 08/03/19 11:05 Nacl 0.9% 1000 Ml IV 42 mls/hr DIRECT LUIS Administration Clindamycin HCl 600 mg in 50 mls @ 100 mls/hr 08/03/19 17:00 08/05/19 05:28 Cleocin 600 Mg/50 Ml IV Not Given Q8HR [facility] Protocol Vancomycin HCl 1,250 mg/ 275 mls @ 166.667 mls/hr 08/05/19 22:00 Sodium Chloride IV Q12H LUIS Insulin Glargine 10 units 08/04/19 22:00 08/04/19 23:19 Lantus SUB-Q 10 units QHS LUIS Administration Insulin Human Lispro 0 unit 08/03/19 07:30 08/04/19 23:54 Humalog SUB-Q Not Given ACHS [facility] Protocol Metoclopramide HCl 10 mg 08/04/19 11:55 Reglan IV Q6H PRN Nausea And Vomiting Morphine Sulfate 2 mg 08/03/19 03:58 08/04/19 04:13 Morphine IV 2 mg Q4H PRN Administration Pain, Moderate (4-6) Ondansetron HCl 4 mg 08/03/19 03:58 08/04/19 10:06 Zofran IV 4 mg Q8H PRN Administration Nausea And Vomiting Sodium Chloride 10 ml 08/03/19 10:00 08/04/19 23:56 Sodium Chloride Flush Syringe 10 Ml IV Not Given BID LUIS Sodium Chloride 10 ml 08/03/19 03:58 Sodium Chloride Flush Syringe 10 Ml IV PRN PRN LINE FLUSH Sodium Hypochlorite 1 applic 08/04/19 08:00 Dakin's Half Strength TP Q12H PRN Wound Care
[2019-08-05] MEDS ORDERED: VANCOMYCIN PHARMACY TO DOSE IV SCH (10:00)
[2019-08-05] MEDS: HYDROmorphone 1 MG/1 ML INJ IV PRN ×3 (10:59→22:04)
[2019-08-05] MEDS: INSULIN LISPRO 100 UNIT/ML SUB-Q SCH ×4 (10:59→22:26)
[2019-08-05] MEDS ORDERED: SODIUM CHLORIDE 0.9% 500 ML IVPB IRRIGATION PRN (13:56)
--- NOTE | 2019-08-05 14:02 | Progress Note ---
Assessment and Plan - Patient Problems (1) Necrotizing fasciitis Current Visit: Yes Status: Acute Plan to address problem: Pt stable. s/p Excisional debridement of necrotizing fasciitis bilateral buttocks - 08/02 - POD#2. Overall, patient appears to be showing signs of improvement. She has been afebrile for the past 48 hours. She does not appear ill. Blood sugars are still not adequately controlled. Dressing change not done last night due to lack of IV access. PICC line has been placed this morning. Dressing change will be done by nursing staff. I want to see if they would be able to do it in order to plan for her to move to the floor. Discussed plan with nurse. In regards to the severe burning with the Dakin's solution yesterday, we will switch to saline. We will monitor over the next few days to see if that is sufficient. Blood sugars appear better this morning. Recommendation: 1. nursing to take over twice daily dressing changes. They have orders for premedication with Ativan and Dilaudid. This seemed to work fairly well for the patient. 2. Tight Blood sugar control 3. Continue to follow labs and await results of wound cultures 4. For now, it may be best for her to stay in IMCU so that she may receive IV Ativan and Dilaudid for the dressing changes. As the wound heals, we will be able to transition over to oral medications and then she can be moved to the floor. Please call with any questions Subjective Date of service: 08/05/19 Patient Reports: Positive: other (nurse reports that patient had a lot of pain in the left buttock after the dressing change. Complained of severe burning) Objective Vital Signs - 12hr 08/05/19 08/05/19 08/05/19 02:00 02:30 03:00 Temperature Pulse Rate 75 78 72 Respiratory 18 17 17 Rate Blood Pressure 129/69 129/82 129/82 O2 Sat by Pulse 98 98 97 Oximetry 08/05/19 08/05/19 08/05/19 03:30 04:00 04:30 Temperature 98.8 F Pulse Rate 72 68 68 Respiratory 17 17 14 Rate Blood Pressure 114/62 114/62 156/75 O2 Sat by Pulse 96 99 99 Oximetry 08/05/19 08/05/19 08/05/19 05:00 05:30 06:00 Temperature Pulse Rate 70 70 69 Respiratory 18 16 16 Rate Blood Pressure 156/75 136/71 136/71 O2 Sat by Pulse 99 99 97 Oximetry 08/05/19 08/05/19 08/05/19 06:40 07:00 07:30 Temperature Pulse Rate 82 72 72 Respiratory 21 19 Rate Blood Pressure 123/64 123/64 123/64 O2 Sat by Pulse 94 91 90 Oximetry 08/05/19 08/05/19 08/05/19 08:00 08:30 09:00 Temperature 97.5 F L Pulse Rate 76 80 76 Respiratory 16 17 20 Rate Blood Pressure 123/64 102/66 102/66 O2 Sat by Pulse 88 93 85 Oximetry 08/05/19 09:30 Temperature Pulse Rate 74 Respiratory 20 Rate Blood Pressure 132/63 O2 Sat by Pulse 90 Oximetry - General physical appearance no distress, no pain, other (looks well, but tired) - Respiratory normal expansion, normal respiratory effort - Rectum other (dressings intact) - Labs 08/04/19 05:30 08/04/19 05:30
--- NOTE | 2019-08-05 14:25 | Progress Note ---
Assessment and Plan Cultures: Blood culture 08/03/2019 no growth today. OR culture 08/03/2019 pending Assessment: 39 years old female with history of asthma, diabetes type 2, left CVA x2, admitted on 08/02/2019 due to severe right buttocks pain: #Severe sepsis: remains with leukocytosis; likely due to necrotizing fasciitis of the right and left buttocks #Right and left buttocks necrotizing fasciitis: Unclear etiology, so far blood cultures are negative. Underwent extensive debridement. #Anemia #Uncontrolled diabetes: A1c 8.9. Glucose 332. Recommendations: monitor leukocytosis continue clindamycin 600 g IV every 8 hours for 72h continue vancomycin with PK consult, keep vancomycin 10-20. continue Zosyn IV for now Will adjust antibiotics soon once culture data available Follow-up blood cultures and wound cultures Will follow. Yesenia Baker MD Infectious Diseases Grades [address] [employer] [facility] ([facility]) M [phone] O [phone] Subjective Date of service: 08/05/19 Principal diagnosis: nec fascitis Interval history: Feels better, no fever, pain under control Objective - Exam Narrative Exam: General appearance: Alert in NAD on NC O2 Eyes: anicteric sclerae, moist conjunctivae; no lid-lag; PERRLA HENT: Atraumatic; oropharynx clear partiale dentulous Lungs: CTA, with normal respiratory effort and no intercostal retractions CV: RRR no murmur Abdomen: Soft, non-tender; no masses or hepatosplenomegaly Extremities: no edema, no cyanosis Skin: Jimmy buttocks surgical dressings Psych: Appropriate affect, alert and oriented to person, place and time. Neuro: alert and oriented x 3. Moving all extermities - Constitutional Vitals: Vital Signs Temp Pulse Resp BP Pulse Ox 97.5 F L 74 20 132/63 90 08/05/19 08:00 08/05/19 09:30 08/05/19 09:30 08/05/19 09:30 08/05/19 09:30 Temperature -Last 24 Hours Temperature 97.5 F Temperature 98.8 F Temperature 98.2 F Temperature 98.7 F Temperature 98.8 F - Labs CBC & Chem 7: 08/04/19 05:30 08/04/19 05:30 Labs: Abnormal lab results 08/04/19 08/04/19 08/05/19 Range/Units 16:40 23:23 08:07 POC Glucose 275 H 330 H 162 H (70-105) 08/05/19 Range/Units 11:28 POC Glucose 198 H (70-105)
[2019-08-05] MEDS: INSULIN NPH/REGULAR 70/30 INJ SUB-Q SCH (17:44)
[2019-08-05] MEDS: SODIUM CHLORIDE 0.9% 1000 ML 1,000 ML IV SCH (17:50)
[2019-08-05] MEDS: INSULIN GLARGINE 100 UNITS/ML SUB-Q SCH (22:08)
[2019-08-06] MEDS: HYDROcodone/ACETAMINOPHEN 5-325 MG TAB PO PRN ×2 (01:22→20:18)
[2019-08-06] MEDS: HYDROmorphone 1 MG/1 ML INJ IV PRN ×2 (05:27→10:20)
[2019-08-06] MEDS: CLINDAMYCIN 600 MG/50 mL 600 MG/50 ML BAG IV SCH (05:28)
[2019-08-06] MEDS: PIPERACIL/TAZOBACTA 4.5/NS 100 4.5 GM/100 ML VIAL IV SCH (05:28)
[2019-08-06 05:57] LABS: Hematocrit 20.9 % (30.3-42.9); Hemoglobin 6.5 gm/dl (10.1-14.3); Mean Corpuscular HGB Conc 31 % (30-34); Platelet Count 247 K/mm3 (140-440); Red Blood Count 2.99 M/mm3 (3.65-5.03); Red Cell Distribution Width 18.1 % (13.2-15.2)
[2019-08-06 06:44] LABS: Mean Corpuscular Volume 70 fl (79-97)
[2019-08-06] MEDS ORDERED: SODIUM CHLORIDE 0.9% 500 ML 500 ML IV NR (08:00)
[2019-08-06] MEDS ORDERED: oxyCODONE /ACETAMINOPHEN 5-325MG TAB PO PRN (08:28)
[2019-08-06] MEDS ORDERED: HYDROmorphone 1 MG/1 ML INJ IV PRN ×2 (08:29→15:01)
[2019-08-06 09:39] LABS: Anisocytosis 1+; Basophils % (Manual) 0 % (0.0-1.8); Burr Cells 1+; Hypochromasia 2+; Target Cells 1+; Total Cells Counted 100
[2019-08-06 09:40] LABS: Helmet Cells Few
[2019-08-06 09:41] LABS: Platelet Estimate Consistent w Auto
[2019-08-06] MEDS: INSULIN NPH/REGULAR 70/30 INJ SUB-Q SCH ×2 (10:18→18:09)
[2019-08-06] MEDS: INSULIN LISPRO 100 UNIT/ML SUB-Q SCH ×3 (10:26→18:09)
[2019-08-06] MEDS: VANCOMYCIN 1,250 MG in SODIUM CHLORIDE 0.9% 250ML 250 ML IV SCH (10:38)
--- NOTE | 2019-08-06 11:30 | Progress Note ---
Assessment and Plan (1) Necrotizing fasciitis Current Visit: Yes Status: Acute Plan to address problem: Pt stable. s/p Excisional debridement of necrotizing fasciitis bilateral buttocks - 08/02 - POD#3. Overall, patient appears to be showing signs of improvement. She has been afebrile. She does not appear ill. Blood sugars are better controlled. Recommendation: 1. continue dressing changes - restart dakins packing BID 2. continue abx per ID -> transition to oral when ok with Dr. Nuñez 3. transition to oral pain medication 4. Will benefit from wound vac. Pt compliance is questionable however. 5. Pt states she has [employer] insurance - CM Corinna will follow up. 6. pt to be set up for follow up in [facility] upon dc 7. ok to shower 8. ok to downgrade from surgery standpoint Please call with any questions Subjective Date of service: 08/06/19 Narrative: Pt seen and examined. Upset mostly about having to be in the hospital and not being able to eat what she wants. She states that she has been doing well with dressing changes over the weekend. Asking when she can go home. Afebrile. Objective Vital Signs - 12hr 08/05/19 08/05/19 08/05/19 23:00 23:30 23:48 Temperature Pulse Rate 64 74 75 Pulse Rate [ From Monitor] Respiratory 19 17 15 Rate Blood Pressure 134/57 130/68 130/68 O2 Sat by Pulse 98 100 100 Oximetry 08/06/19 08/06/19 08/06/19 00:00 00:30 01:00 Temperature 98.3 F Pulse Rate 69 69 71 Pulse Rate [ 69 From Monitor] Respiratory 16 17 19 Rate Blood Pressure 130/68 98/50 98/50 O2 Sat by Pulse 99 100 100 Oximetry 08/06/19 08/06/19 08/06/19 01:30 02:00 02:30 Temperature Pulse Rate 79 69 69 Pulse Rate [ From Monitor] Respiratory 15 18 24 Rate Blood Pressure 107/59 107/59 107/59 O2 Sat by Pulse 99 100 97 Oximetry 08/06/19 08/06/19 08/06/19 03:00 03:30 04:00 Temperature 97.9 F Pulse Rate 65 73 70 Pulse Rate [ 70 From Monitor] Respiratory 15 18 17 Rate Blood Pressure 101/62 104/62 104/62 O2 Sat by Pulse 100 100 100 Oximetry 08/06/19 08/06/19 08/06/19 04:30 05:00 05:30 Temperature Pulse Rate 66 73 76 Pulse Rate [ From Monitor] Respiratory 16 18 17 Rate Blood Pressure 96/60 96/60 102/57 O2 Sat by Pulse 100 99 100 Oximetry 08/06/19 08/06/19 08/06/19 06:00 06:30 07:00 Temperature Pulse Rate 68 62 75 Pulse Rate [ From Monitor] Respiratory 11 L 17 13 Rate Blood Pressure 102/57 102/57 106/55 O2 Sat by Pulse 88 99 100 Oximetry 08/06/19 08/06/19 08/06/19 07:30 08:00 08:30 Temperature 98.0 F Pulse Rate 62 73 75 Pulse Rate [ From Monitor] Respiratory 13 13 22 Rate Blood Pressure 134/71 134/71 68/35 O2 Sat by Pulse 98 96 95 Oximetry 08/06/19 08/06/19 09:00 10:20 Temperature Pulse Rate 76 Pulse Rate [ From Monitor] Respiratory 20 14 Rate Blood Pressure 152/61 O2 Sat by Pulse 94 Oximetry - General physical appearance Narrative Exam: Gen; AAOx3. moderate distress due to pain(dressing was just removed) and tearful CV: S1, S2+ Resp; even and unlabored Gluteal: Bilateral gluteal wounds, R>L. Both wounds with slough on wound bed. No odor or drainage. NO obvious necrotic tissue - Labs 08/06/19 05:30 08/04/19 05:30
--- NOTE | 2019-08-06 12:20 | Progress Note ---
Assessment and Plan Assessment and plan: Extensive necrotizing fasciitis of right buttock and portion of left buttock.. Surgery and ID following Sepsis. Present on admission. Etiology secondary to above. Patient meets criteria given the fever, leukocytosis and diagnosis of necrotizing fasciitis Leukocytosis. Etiology secondary to above. Continue to follow CBC. Diabetes mellitus type 2. Continue Accu-Cheks and sliding scale insulin. Tight glycemic control to promote wound healing. Hypertension. Resume antihypertensive medications. Hypokalemia. Replete potassium. 08/04/2019. Patient with excisional debridement of necrotizing fasciitis of bilateral buttocks completed on 08/03/2019. Continue clindamycin, Zosyn and vancomycin per ID recommendations. Follow-up blood cultures and wound cultures. Continue wound care. Patient with elevated BG in the 350s. We will start Lantus at bedtime 10 units. 70/30 insulin 10 units x 1 now. 08/05/2019. Patient s/p excisional debridement of necrotizing fasciitis of bilateral buttocks. Continue antibiotics per ID recommendations. PICC line placement. Increase Lantus for better glycemic control. Follow-up wound culture results. Likely transfer to the floor. 08/06/2019. Patient s/p excisional debridement of necrotizing fasciitis of bilateral buttocks. Continue antibiotics per ID recommendations. PICC line placed. Continue dressing changes per wound care. Patient will need wound VAC. Patient currently anemic with hemoglobin 6.5. Patient refusing PRBCs at this time. BG much better controlled. History Interval history: No new issues overnight. Hospitalist Physical - Constitutional Vitals: Temp Pulse Resp BP Pulse Ox 98.0 F 71 19 128/53 100 08/06/19 08:00 08/06/19 12:00 08/06/19 12:00 08/06/19 12:00 08/06/19 10:00 General appearance: Present: no acute distress, well-nourished - EENT Eyes: Present: PERRL, EOM intact ENT: hearing intact, clear oral mucosa, dentition normal - Neck Neck: Present: supple, normal ROM - Respiratory Respiratory effort: normal Respiratory: bilateral: CTA - Cardiovascular Rhythm: regular Heart Sounds: Present: S1 & S2. Absent: gallop, rub - Extremities Extremities: no ischemia, No edema, Full ROM - Abdominal General gastrointestinal: soft, non-tender, non-distended, normal bowel sounds - Integumentary Integumentary: Present: clear, warm, dry - Neurologic Neurologic: CNII-XII intact, moves all extremities HEART Score - HEART Score EKG: Normal Age: < 45 Risk factors: 1-2 risk factors Results - Labs CBC & Chem 7: 08/06/19 05:30 08/04/19 05:30 Labs: Laboratory Last Values WBC 15.6 K/mm3 (4.5-11.0) H 08/06/19 05:30 RBC 2.99 M/mm3 (3.65-5.03) L 08/06/19 05:30 Hgb 6.5 gm/dl (10.1-14.3) L 08/06/19 05:30 Hct 20.9 % (30.3-42.9) L 08/06/19 05:30 MCV 70 fl (79-97) L 08/06/19 05:30 MCH 22 pg (28-32) L 08/06/19 05:30 MCHC 31 % (30-34) 08/06/19 05:30 RDW 18.1 % (13.2-15.2) H 08/06/19 05:30 Plt Count 247 K/mm3 (140-440) 08/06/19 05:30 Add Manual Diff Complete 08/06/19 05:30 Total Counted 100 08/06/19 05:30 Seg Neutrophils % Emergency Man 08/03/19 00:21 Seg Neuts % (Manual) 66.0 % (40.0-70.0) 08/06/19 05:30 Band Neutrophils % 0 % 08/06/19 05:30 Lymphocytes % (Manual) 22.0 % (13.4-35.0) 08/06/19 05:30 Reactive Lymphs % (Man) 0 % 08/06/19 05:30 Monocytes % (Manual) 7.0 % (0.0-7.3) 08/06/19 05:30 Eosinophils % (Manual) 5.0 % (0.0-4.3) H 08/06/19 05:30 Basophils % (Manual) 0 % (0.0-1.8) 08/06/19 05:30 Metamyelocytes % 0 % 08/06/19 05:30 Myelocytes % 0 % 08/06/19 05:30 Promyelocytes % 0 % 08/06/19 05:30 Blast Cells % 0 % 08/06/19 05:30 Nucleated RBC % Not Reportable 08/06/19 05:30 Seg Neutrophils # Man 10.3 K/mm3 (1.8-7.7) H 08/06/19 05:30 Band Neutrophils # 0.0 K/mm3 08/06/19 05:30 Lymphocytes # (Manual) 3.4 K/mm3 (1.2-5.4) 08/06/19 05:30 Abs React Lymphs (Man) 0.0 K/mm3 08/06/19 05:30 Monocytes # (Manual) 1.1 K/mm3 (0.0-0.8) H 08/06/19 05:30 Eosinophils # (Manual) 0.8 K/mm3 (0.0-0.4) H 08/06/19 05:30 Basophils # (Manual) 0.0 K/mm3 (0.0-0.1) 08/06/19 05:30 Metamyelocytes # 0.0 K/mm3 08/06/19 05:30 Myelocytes # 0.0 K/mm3 08/06/19 05:30 Promyelocytes # 0.0 K/mm3 08/06/19 05:30 Blast Cells # 0.0 K/mm3 08/06/19 05:30 WBC Morphology Not Reportable 08/06/19 05:30 Hypersegmented Neuts Not Reportable 08/06/19 05:30 Hyposegmented Neuts Not Reportable 08/06/19 05:30 Hypogranular Neuts Not Reportable 08/06/19 05:30 Smudge Cells Not Reportable 08/06/19 05:30 Toxic Granulation Not Reportable 08/06/19 05:30 Toxic Vacuolation Not Reportable 08/06/19 05:30 Dohle Bodies Not Reportable 08/06/19 05:30 Pelger-Huet Anomaly Not Reportable 08/06/19 05:30 Leann Rods Not Reportable 08/06/19 05:30 Platelet Estimate Consistent w auto 08/06/19 05:30 Clumped Platelets Not Reportable 08/06/19 05:30 Plt Clumps, EDTA Not Reportable 08/06/19 05:30 Large Platelets Not Reportable 08/06/19 05:30 Giant Platelets Not Reportable 08/06/19 05:30 Platelet Satelliting Not Reportable 08/06/19 05:30 Plt Morphology Comment Not Reportable 08/06/19 05:30 RBC Morphology Not Reportable 08/06/19 05:30 Dimorphic RBCs Not Reportable 08/06/19 05:30 Polychromasia Not Reportable 08/06/19 05:30 Hypochromasia 2+ 08/06/19 05:30 Poikilocytosis Not Reportable 08/06/19 05:30 Anisocytosis 1+ 08/06/19 05:30 Microcytosis 1+ 08/06/19 05:30 Macrocytosis Not Reportable 08/06/19 05:30 Spherocytes Not Reportable 08/06/19 05:30 Pappenheimer Bodies Not Reportable 08/06/19 05:30 Sickle Cells Not Reportable 08/06/19 05:30 Target Cells 1+ 08/06/19 05:30 Tear Drop Cells Not Reportable 08/06/19 05:30 Ovalocytes Not Reportable 08/06/19 05:30 Helmet Cells Few 08/06/19 05:30 [place] Bodies Not Reportable 08/06/19 05:30 [place] Rings Not Reportable 08/06/19 05:30 [place] Cells 1+ 08/06/19 05:30 Bite Cells Not Reportable 08/06/19 05:30 Crenated Cell Not Reportable 08/06/19 05:30 Elliptocytes Not Reportable 08/06/19 05:30 Acanthocytes (Spur) Not Reportable 08/06/19 05:30 Rouleaux Not Reportable 08/06/19 05:30 Hemoglobin C Crystals Not Reportable 08/06/19 05:30 Schistocytes Not Reportable 08/06/19 05:30 Malaria parasites Not Reportable 08/06/19 05:30 Josh Bodies Not Reportable 08/06/19 05:30 Hem Pathologist Commnt No 08/06/19 05:30 PT 14.9 Sec. (12.2-14.9) 08/04/19 05:30 INR 1.16 (0.87-1.13) H 08/04/19 05:30 Sodium 131 mmol/L (137-145) L 08/04/19 05:30 Potassium 4.5 mmol/L (3.6-5.0) D 08/04/19 05:30 Chloride 101.8 mmol/L (98-107) 08/04/19 05:30 Carbon Dioxide 14 mmol/L (22-30) L D 08/04/19 05:30 Anion Gap 20 mmol/L 08/04/19 05:30 BUN 30 mg/dL (7-17) H 08/04/19 05:30 Creatinine 1.3 mg/dL (0.7-1.2) H 08/04/19 05:30 Estimated GFR 55 ml/min 08/04/19 05:30 BUN/Creatinine Ratio 23 % 08/04/19 05:30 Glucose 398 mg/dL (65-100) H 08/04/19 05:30 POC Glucose 111 (70-105) H 08/05/19 21:36 Hemoglobin A1c 8.9 % (4-6) H 08/03/19 00:21 Lactic Acid 1.70 mmol/L (0.7-2.0) 08/03/19 01:46 Calcium 7.6 mg/dL (8.4-10.2) L 08/04/19 05:30 HCG, Qual Negative (Negative) 08/03/19 00:21 Vancomycin Trough 14.3 ug/mL (5.0-20.0) 08/05/19 22:20 Blood Type O POSITIVE 08/06/19 10:40 Crossmatch See Detail 08/06/19 10:40 Microbiology: Microbiology 08/03/19 Unknown Buttock Surgical Culture - Final 08/03/19 02:33 Peripheral/Venous Blood Culture - Preliminary NO GROWTH AFTER 72 HOURS 08/03/19 01:46 Peripheral/Venous Blood Culture - Preliminary NO GROWTH AFTER 72 HOURS 08/03/19 Unknown Buttock Anaerobic Culture - Preliminary Lawson/IV: Voiding Method Toilet IV Catheter Type [Right Upper PICC Line arm] IV Catheter Type [Left INT / Saline Lock Antecubital] Active Medications - Current Medications Current Medications: Generic Name Dose Route Start Last Admin Trade Name Freq PRN Reason Stop Dose Admin Acetaminophen 650 mg 08/03/19 03:58 08/03/19 14:32 Tylenol PO 650 mg Q4H PRN Administration Pain MILD(1-3)/Fever >100.5/MCKEON Acetaminophen/Hydrocodone Bitart 2 each 08/04/19 12:36 08/06/19 01:22 [place] 5/325 PO 2 each Q6H PRN Administration Pain, Moderate (4-6) Dextrose 0 ml 08/03/19 03:58 D50w (25gm) Syringe IV Q30MIN PRN Hypoglycemia Protocol Hydromorphone HCl 1 mg 08/04/19 11:30 08/06/19 10:20 Dilaudid IV 1 mg BID PRN Administration Wound Care Hydromorphone HCl 0.5 mg 08/06/19 08:29 Dilaudid IV Q3H PRN Pain , Severe (7-10) Piperacillin Sod/Tazobactam Sod 4.5 gm in 100 mls @ 200 mls/hr 08/03/19 06:00 08/06/19 05:28 Zosyn/Ns 4.5gm/100ml IV 200 mls/hr Q8HR LUIS Administration Protocol Clindamycin HCl 600 mg in 50 mls @ 100 mls/hr 08/03/19 17:00 08/06/19 05:28 Cleocin 600 Mg/50 Ml IV 100 mls/hr Q8HR LUIS Administration Protocol Vancomycin HCl 1,250 mg/ 275 mls @ 166.667 mls/hr 08/05/19 22:00 08/06/19 10:38 Sodium Chloride IV 166.667 mls/hr Q12H LUIS Administration Sodium Chloride 500 mls @ 0 mls/hr 08/06/19 08:00 Nacl 0.9% 500 Ml IV 08/06/19 23:59 ONCE NR As Directed Insulin Glargine 10 units 08/04/19 22:00 08/05/19 22:08 Lantus SUB-Q 10 units QHS LUIS Administration Insulin Human Isoph/Insulin Regular 10 unit 08/05/19 17:00 08/06/19 10:18 Humulin 70/30 SUB-Q 10 unit BIDDIAB LUIS Administration Insulin Human Lispro 0 unit 08/03/19 07:30 08/06/19 12:08 Humalog SUB-Q Not Given ACHS [facility] Protocol Metoclopramide HCl 10 mg 08/04/19 11:55 Reglan IV Q6H PRN Nausea And Vomiting Ondansetron HCl 4 mg 08/03/19 03:58 08/04/19 10:06 Zofran IV 4 mg Q8H PRN Administration Nausea And Vomiting Sodium Chloride 10 ml 06/26/20 10:00 08/06/19 10:27 Sodium Chloride Flush Syringe 10 Ml IV 10 ml BID LUIS Administration Sodium Chloride 10 ml 08/03/19 03:58 Sodium Chloride Flush Syringe 10 Ml IV PRN PRN LINE FLUSH Sodium Chloride 10 ml 08/05/19 13:56 Nacl 0.9% 500 Ml IRRIGATION BID PRN Wound Care Sodium Hypochlorite 1 applic 08/06/19 22:00 Dakin's Half Strength TP BID LUIS
--- NOTE | 2019-08-06 14:38 | Progress Note ---
Assessment and Plan Cultures: Blood culture 08/03/2019 no growth today. OR culture 08/03/2019 pending Assessment: 39 years old female with history of asthma, diabetes type 2, left CVA x2, admitted on 08/02/2019 due to severe right buttocks pain: #Severe sepsis: remains with leukocytosis ? reactive due to severe anemia; likely due to necrotizing fasciitis of the right and left buttocks #Right and left buttocks necrotizing fasciitis: Unclear etiology, so far blood cultures are negative. Underwent extensive debridement on08/03/2019 culture NO growth. #Anemia #Uncontrolled diabetes: A1c 8.9. Glucose 332. Strict glycemic control. Recommendations: monitor leukocytosis stop clindamycin stop vancomycin and zosyn start empiric levaquin 750 mg po, flagyl 500 mg po tid and doxycycline 100 mg po bid total 7 days post debridement Will follow. Yesenia Baker MD Infectious Diseases Treating Machine Operator [facility] ([facility]) M [phone] O [phone] Subjective Date of service: 08/06/19 Principal diagnosis: nec fascitis Interval history: Feels better, no fever, pain under control Objective - Exam Narrative Exam: General appearance: Alert in NAD on NC O2 Eyes: anicteric sclerae, moist conjunctivae; no lid-lag; PERRLA HENT: Atraumatic; oropharynx clear partiale dentulous Lungs: CTA, with normal respiratory effort and no intercostal retractions CV: RRR no murmur Abdomen: Soft, non-tender; no masses or hepatosplenomegaly Extremities: no edema, no cyanosis Skin: Jimmy buttocks surgical dressings Psych: Appropriate affect, alert and oriented to person, place and time. Neuro: alert and oriented x 3. Moving all extermities - Constitutional Vitals: Vital Signs Temp Pulse Resp BP Pulse Ox 98.3 F 72 8 L 128/53 100 08/06/19 12:00 08/06/19 13:00 08/06/19 13:00 08/06/19 13:00 08/06/19 10:00 Temperature -Last 24 Hours Temperature 98.3 F Temperature 98.0 F Temperature 97.9 F Temperature 98.3 F Temperature 98.0 F Temperature 97.6 F - Labs CBC & Chem 7: 08/06/19 05:30 06/27/20 05:30 Labs: Abnormal lab results 08/05/19 08/05/19 08/06/19 Range/Units 17:00 21:36 05:30 WBC 15.6 H (4.5-11.0) K/mm3 RBC 2.99 L (3.65-5.03) M/mm3 Hgb 6.5 L (10.1-14.3) gm/dl Hct 20.9 L (30.3-42.9) % MCV 70 L (79-97) fl MCH 22 L (28-32) pg RDW 18.1 H (13.2-15.2) % Eosinophils % (Manual) 5.0 H (0.0-4.3) % Seg Neutrophils # Man 10.3 H (1.8-7.7) K/mm3 Monocytes # (Manual) 1.1 H (0.0-0.8) K/mm3 Eosinophils # (Manual) 0.8 H (0.0-0.4) K/mm3 POC Glucose 198 H 111 H (70-105) Crossmatch 08/06/19 Range/Units 10:40 WBC (4.5-11.0) K/mm3 RBC (3.65-5.03) M/mm3 Hgb (10.1-14.3) gm/dl Hct (30.3-42.9) % MCV (79-97) fl MCH (28-32) pg RDW (13.2-15.2) % Eosinophils % (Manual) (0.0-4.3) % Seg Neutrophils # Man (1.8-7.7) K/mm3 Monocytes # (Manual) (0.0-0.8) K/mm3 Eosinophils # (Manual) (0.0-0.4) K/mm3 POC Glucose (70-105) Crossmatch See Detail
[2019-08-06] MEDS: metroNIDAZOLE 500 MG TAB PO SCH ×2 (15:16→22:34)
[2019-08-06] MEDS: levoFLOXacin 750 MG TAB PO SCH (15:17)
[2019-08-06] MEDS: DOXYCYCLINE 100 MG CAP PO SCH ×2 (15:17→22:33)
[2019-08-06] MEDS ORDERED: SODIUM HYPOCHLORITE, DAKIN'S 1/2 STRENGTH (0.25%) 473 ML TOPICAL SOLN TP SCH (22:00)
[2019-08-07] MEDS: INSULIN GLARGINE 100 UNITS/ML SUB-Q SCH (00:51)
[2019-08-07] MEDS: INSULIN LISPRO 100 UNIT/ML SUB-Q SCH ×3 (00:51→13:22)
[2019-08-07] MEDS: HYDROmorphone 1 MG/1 ML INJ IV PRN (00:59)
[2019-08-07] MEDS: HYDROcodone/ACETAMINOPHEN 5-325 MG TAB PO PRN ×2 (06:29→13:36)
[2019-08-07] MEDS: metroNIDAZOLE 500 MG TAB PO SCH ×2 (06:29→14:31)
--- NOTE | 2019-08-07 08:22 | Progress Note ---
Assessment and Plan Cultures: Blood culture 08/03/2019 no growth today. OR culture 08/03/2019 negative Assessment: 39 years old female with history of asthma, diabetes type 2, left CVA x2, admitted on 08/02/2019 due to severe right buttocks pain: #Severe sepsis: remains with leukocytosis ? reactive due to anemia; likely due to necrotizing fasciitis of the right and left buttocks #Right and left buttocks necrotizing fasciitis: Unclear etiology, so far blood cultures are negative. Underwent extensive debridement on08/03/2019 culture NO growth. #Anemia #Uncontrolled diabetes: A1c 8.9. Glucose 332. Strict glycemic control. Recommendations: monitor leukocytosis Continue empiric levaquin 750 mg po, flagyl 500 mg po tid and doxycycline 100 mg po bid total 7 days post debridement until 08/10/2019 Will sign off Yesenia Baker MD Infectious Diseases Primary Care Nurse [facility] [place] ([facility]) M [phone] O [phone] Subjective Date of service: 08/07/19 Principal diagnosis: nec fascitis Interval history: Feels better, no fever, pain under control Objective - Exam Narrative Exam: General appearance: Alert in NAD on NC O2 Eyes: anicteric sclerae, moist conjunctivae; no lid-lag; PERRLA HENT: Atraumatic; oropharynx clear partiale dentulous Lungs: CTA, with normal respiratory effort and no intercostal retractions CV: RRR no murmur Abdomen: Soft, non-tender; no masses or hepatosplenomegaly Extremities: no edema, no cyanosis Skin: Jimmy buttocks surgical dressings Psych: Appropriate affect, alert and oriented to person, place and time. Neuro: alert and oriented x 3. Moving all extermities - Constitutional Vitals: Vital Signs Temp Pulse Resp BP Pulse Ox 98.8 F 76 18 145/65 92 08/07/19 04:34 08/07/19 04:34 08/07/19 04:34 08/07/19 04:34 08/07/19 04:34 Temperature -Last 24 Hours Temperature 98.8 F Temperature 98.4 F Temperature 98.3 F Temperature 98.2 F Temperature 98.3 F - Labs CBC & Chem 7: 08/06/19 05:30 08/04/19 05:30 Labs: Abnormal lab results 08/06/19 08/06/1908/05/20 Range/Units 05:30 07:55 10:40 Eosinophils % (Manual) 5.0 H (0.0-4.3) % Seg Neutrophils # Man 10.3 H (1.8-7.7) K/mm3 Monocytes # (Manual) 1.1 H (0.0-0.8) K/mm3 Eosinophils # (Manual) 0.8 H (0.0-0.4) K/mm3 POC Glucose 134 H (70-105) Crossmatch See Detail 08/06/19 08/06/19 08/07/19 Range/Units 11:13 21:45 01:04 Eosinophils % (Manual) (0.0-4.3) % Seg Neutrophils # Man (1.8-7.7) K/mm3 Monocytes # (Manual) (0.0-0.8) K/mm3 Eosinophils # (Manual) (0.0-0.4) K/mm3 POC Glucose 138 H 197 H 131 H (70-105) Crossmatch 08/07/19 Range/Units 07:46 Eosinophils % (Manual) (0.0-4.3) % Seg Neutrophils # Man (1.8-7.7) K/mm3 Monocytes # (Manual) (0.0-0.8) K/mm3 Eosinophils # (Manual) (0.0-0.4) K/mm3 POC Glucose 135 H (70-105) Crossmatch
[2019-08-07] MEDS: INSULIN NPH/REGULAR 70/30 INJ SUB-Q SCH (08:45)
[2019-08-07] MEDS: levoFLOXacin 750 MG TAB PO SCH (10:06)
[2019-08-07] MEDS: DOXYCYCLINE 100 MG CAP PO SCH (10:38)
--- NOTE | 2019-08-07 11:02 | Progress Note ---
Assessment and Plan (1) Necrotizing fasciitis Current Visit: Yes Status: Acute Plan to address problem: Pt stable. s/p Excisional debridement of necrotizing fasciitis bilateral buttocks - 08/02 - POD#4. Recommendation: 1. continue dressing changes - dakins packing BID. 2. continue abx per ID 3. prn oral pain medication 4. Pt does not have active insurance. Sheyla application to be provided by addiction social worker. 5. strict glucose control 6. anemia - pt refused blood transfusion. Asymptomatic 7. Ok to dc from surgery standpoint. Pt to follow up in surgery clinic upon dc and will eventually need to be transitioned to the wound care center. Verbal wound care instructions given to patient and she assures me she will be able to care for wound on her own. Discussed with Dr. Dickinson. Please call with any questions Subjective Date of service: 08/07/19 Narrative: Pt seen and examined. No pain. Tolerating diet. No f/c. Pt states she can now lay on her buttocks. She is walking to and from bathroom. She states she feels well and is asking repeatedly to go home. Objective Vital Signs - 12hr 08/07/19 04:34 Temperature 98.8 F Pulse Rate 76 Respiratory 18 Rate Blood Pressure 145/65 O2 Sat by Pulse 92 Oximetry - General physical appearance Narrative Exam: Gen: AAOx3. NAD CV: s1, S2+ Resp: even and unlabored Gluteal: dressing c/d/i - Labs 08/06/19 05:30 08/04/19 05:30
--- NOTE | 2019-08-07 13:22 | Discharge Summary ---
Providers - Providers Date of Admission: 08/03/19 04:17 Date of discharge: 08/07/19 Attending physician: IRAIDA SWEENEY 08/03/19 02:53 Consult to Physician [CONS] Urgent Comment: Consulting Provider: MYRA CONTRERAS Physician Instructions: Reason For Exam: perianal abscess 08/03/19 10:09 Consult to Physician [CONS] Routine Comment: Consulting Provider: MIGUEL ÁNGEL BEAN Physician Instructions: Reason For Exam: necrotizing fasciitis 08/03/19 10:15 Consult to Case Management [CONS] Routine Services Needed at Discharge: Home Health Services Wound Vac Notified:: - 08/03/19 12:52 Consult to Physician [CONS] Routine Comment: Consulting Provider: MIGUEL ÁNGEL BEAN Physician Instructions: Reason For Exam: abscess 08/03/19 13:03 Consult to Wound/ET Nurse [CONS] Routine Reason For Exam: buttock wounds - necrotizing fasciitis 08/04/19 23:19 PICC Line Insertion [Consult to PICC Line RN] [CONS] Urgent Reason For Exam: NO IV access Type Line:: PICC Primary care physician: TERRITORY SALES REPRESENTATIVE Hospitalization Condition: Stable Disposition: DC-30 STILL A PATIENT Exam - Constitutional Vitals: Temp Pulse Resp BP Pulse Ox 98.8 F 76 18 145/65 92 08/07/19 04:34 08/07/19 04:34 08/07/19 04:34 08/07/19 04:34 08/07/19 04:34 Plan Activity: no restrictions Diet: regular Follow up with: MYRA CONTRERAS DO [Staff Physician] - 7 Days PRIMARY CARE, [Primary Care Provider] - 7 Days MIGUEL ÁNGEL BEAN MD [Staff Physician] - 7 Days Prescriptions: metroNIDAZOLE [Flagyl TAB] 500 mg PO Q8HR #12 tablet levoFLOXacin [Levaquin TAB] 750 mg PO Q24HR #3 tablet HYDROcodone/APAP 5-325 [[place] 5-325 mg TAB] 2 each PO BID PRN #20 tablet PRN Reason: Wound Care DOXYCYCLINE Hyclate [Vibramycin CAP] 100 mg PO BID #7 tab
[2019-08-07 15:26] VITALS: BP 143/66
== END 2019-08-07 16:31 | disposition home health service (06) | DRG 853 ==
LOC: ED 22:43 → 3B-SURG 08-03 04:17 → IMCU 08-03 14:08 → 3A 08-06 14:36
PROVIDERS: ADMIT Internal Medicine Geriatric Medicine; ATTEND Internal Medicine
PROC: 0JB90ZZ Excision of Buttock Subcutaneous Tissue and Fascia, Open Approach (ICD-10-PCS; principal; 2019-08-03)
DX: A41.9 Sepsis, unspecified organism (principal); M72.6 Necrotizing fasciitis; E87.2 Acidosis; I69.354 Hemiplegia and hemiparesis following cerebral infarction affecting left non-dominant side; K61.1 Rectal abscess; D72.829 Elevated white blood cell count, unspecified; E87.6 Hypokalemia; I10 Essential (primary) hypertension; E11.9 Type 2 diabetes mellitus without complications; J45.909 Unspecified asthma, uncomplicated; F17.210 Nicotine dependence, cigarettes, uncomplicated; Z82.5 Family history of asthma and other chronic lower respiratory diseases; Z82.49 Family history of ischemic heart disease and other diseases of the circulatory system; D72.825 Bandemia; Z88.6 Allergy status to analgesic agent; R65.20 Severe sepsis without septic shock; D64.9 Anemia, unspecified
CPT/HCPCS: 36415; 72193; 80048; 80202; 82140; 82962; 83036; 84703; 85007; 85025; 85610; 86850; 86900; 86901; 86920; 87040; 87075; 87116; G0378; A4217; A6260; J0330; J1170; J1815; J2060; J2270; J2370; J2405; J2543; J2704; J2710; J3010; J3370; J7030; J7040; J7050; Q9967